=== PATIENT | male | born 1980 | race Caucasian/White ===

== ENCOUNTER 2019-01-23 16:49 | Outpatient (CLI) | payer SELFPAY ==
[2019-01-23 21:21] LABS: Kit/Specimen SENT
== END 2019-01-23 17:09 ==
DX: Z02.89 Encounter for other administrative examinations (principal)

== ENCOUNTER 2020-10-04 07:30 | Emergency (ER) | payer MEDICAID, SELFPAY ==
[2020-10-04 07:54] VITALS: BP 120/89; PULSE 60; TEMP 36.8; O2SAT 96
--- NOTE | 2020-10-04 08:00 | DI.RAD_ITS ---
Exam(s) XR HAND RT COMPLETE EXAM: XR HAND RT COMPLETE CLINICAL HISTORY: Handswelling. TECHNIQUE: 2D digital imaging was performed. COMPARISON: CR XR HAND LT COMPLETE from 10/04/2020 FINDINGS: There is a single screw across what is probably healed fracture of the base of the 5th meta carpal. There is no evidence of acute fracture in the right hand. No dislocation. No radiopaque soft tissue foreign body. Lucent see consistent with subarticular cyst is seen in the distal ulna. IMPRESSION: DATA REPOSITORY: RADIATION DOSE DELIVERED:
--- NOTE | 2020-10-04 08:00 | DI.RAD_ITS ---
Exam(s) XR HAND LT COMPLETE EXAM: XR HAND LT COMPLETE CLINICAL HISTORY: Hand swelling. TECHNIQUE: 2D digital imaging was performed. COMPARISON: No exams were available for comparison FINDINGS: There is no evidence of acute fracture nor dislocation. No radiopaque foreign body. Benign bone isl and is noted in the distal radius. Small subarticular cyst is seen in the distal ulna. No radiopaqu e foreign body evident. IMPRESSION: DATA REPOSITORY: RADIATION DOSE DELIVERED:
--- NOTE | 2020-10-04 08:06 | W.ED.GENAD ---
Discharge Plan Disposition Patient Disposition: HOME Condition: Stable Discharge Details Clinical Impression: Localized swelling of both hands Primary Care Provider: None,None ED Provider: Maria R Pineda Home Meds and New Rx's Prescriptions: No Action methadone 10 mg/mL Syringe 110 mg PO DAILY RF: 0 Discharge Instructions Instructions: Arthralgia (ED) Additional Instructions: Rest, ice, compression, elevation. Please take Tylenol or Ibuprofen with food every 4-6 hours as needed for pain and swelling. Please wash hands vigorously with soap and water. Keep openings in the skin covered with bandage while working. Follow up with primary care provider in 3-5 days. Return to ED sooner if any worsening redness, swelling, fever, chills inability to move your wrist or concerns. Increase oral fluids. X-rays today are negative for anything acute. No obvious inflammation or inflammatory changes. Please follow-up with primary care provider if this continues to occur. You are placed on PCP establishment list for care management they should be giving you a call to help you set up with primary care provider. Discharge Data Discharge Date/Time-TO BE ENTERED AT DEPARTURE: 10/04/20 09:11 Medical Decision Making 40-year-old male presents to the ER with chief complaint of bilateral swollen achy hands which is ongoing for a while worse over the last couple days. States he usually wakes up with swollen hands with inability to make a fist. 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 He does have full extension and flexion of his bilateral wrists. He denies any myalgias, fever, other joint swelling, chest pain or shortness of breath or any other associated symptoms. He states that the swelling and achiness usually goes away on its own. He does not have a primary care provider. He does take methadone daily. Does have a history of right hand surgery for a broken finger. At this time bilateral hand x-rays ordered to rule out arthritis. Due to patient's complaints it does sound that this is chronic in nature and possible arthritic. At this time there is no evidence of cellulitis. Denies any other systemic symptoms no fever no chills no body aches. Will place patient on care management list to establish PCP. Tylenol given. Differential diagnosis includes but not limited to arthritis, cellulitis, X-rays are negative for anything acute. Discussed results with patient who verbalized understanding. Discussed home care. This text was generated using [employer] dictation system, please disregard any oddities of phrase or misspellings. EXAM: XR HAND LT COMPLETE CLINICAL HISTORY: Hand swelling. TECHNIQUE: 2D digital imaging was performed. COMPARISON: No exams were available for comparison FINDINGS: There is no evidence of acute fracture nor dislocation. No radiopaque foreign body. Benign bone island is noted in the distal radius. Small subarticular cyst is seen in the distal ulna. No radiopaque foreign body evident. HPI General Mode of arrival: ambulatory. Date/Time Provider Initiated Documentation: 10/04/20 08:05. Limitations to Documentation: no limitations. Information obtained by: patient. HPI Narrative: 40-year-old male presents to the ER with chief complaint of bilateral swollen achy hands which is ongoing for a while worse over the last couple days. States he usually wakes up with swollen hands with inability to make a fist. 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 He does have full extension and flexion of his bilateral wrists. He denies any myalgias, fever, other joint swelling, chest pain or shortness of breath or any other associated symptoms. He states that the swelling and achiness usually goes away on its own. He does not have a primary care provider. He does take methadone daily. Does have a history of right hand surgery for a broken finger. Related Data Home Medications Medication Instructions Recorded Confirmed methadone 110 mg PO DAILY 10/04/20 10/04/20 Allergies Allergy/AdvReac Type Severity Reaction Status Date / Time cephalexin [From Keflex] AdvReac Unverified 10/04/20 07:57 General Stated Complaint: Orthopedic RONNI: 5 Review of Systems All systems reviewed & are unremarkable except as noted in HPI and below ENT Ears, Nose, Mouth, and Throat: Denies neck pain Musculoskeletal Musculoskeletal: Reports as per HPI, Denies abnormal gait, Denies back pain, Denies myalgias, Denies deformity, Reports arthralgias, Reports joint swelling, Reports limited range of motion, Denies neck pain, Denies numbness, Denies radiating pain into limb, Reports stiffness and Denies tingling Neurologic Neurologic: Denies abnormal gait, Denies numbness and Denies tingling [facility] Social History Smoking/Tobacco Use Status: Current every day Tobacco Type: cigarettes Smoking risk assessment performed?: Yes Alcohol Intake: never Drug use: Never Substance use type: does not use Do you feel safe at home: Yes Do you feel safe in your relationship?: Yes Exam Narrative Exam Narrative: Constitutional: Alert and oriented x3. Appears stated age. Normal body habitus. Head: Normocephalic, no trauma. Eyes: Pupils PERRLA, Red reflex noted, EOM's intact. Eyelids symmetrical without lesions, discharge, or swelling. ENT: Bilateral TM's WNL, External ear normal to inspection. Chest: RRR, Normal S1, S2, distal pulses intact. Resp: Lungs clear to auscultation bilaterally, no wheezes, rales, or rhonchi. Musculoskeletal: Normal gait, 5/5 strength to all four extremities. Skin: Abrasion noted as diagrammed below. Capillary refill less than 2 sec. no significant swelling noted on exam. No significant erythema noted. Neurologic: Cranial nerves II-XII intact. Alert and oriented x 3. DTR's intact. Hematologic/Lymphatic: No ecchymosis, no lymphadenopathy. Extrem Hand/finger images: 1. Superficial abrasion, no surrounding erythema or induration. 2. Small chronic appearing break in skin no surrounding erythema or induration no drainage. 3. Multiple superficial abrasions noted to the palm and palmar side of the fingers. No surrounding erythema or induration or drainage. Course Vital Signs Vital signs: Vital Signs Temperature 36.8 C 10/04/20 07:54 Pulse 60 10/04/20 07:54 Blood Pressure 120/89 10/04/20 07:54 Pulse Oximetry 96 10/04/20 07:54 Temperature 36.8 C 10/04/20 07:54 Temperature Source Temporal Artery Scan 10/04/20 07:54 Pulse 60 10/04/20 07:54 Respiratory Effort Non-Labored 10/04/20 07:56 Blood Pressure 120/89 10/04/20 07:54 Blood Pressure Position Sitting 10/04/20 07:54 Pulse Oximetry 96 10/04/20 07:54 Oxygen Delivery Method Room Air 10/04/20 07:54 Oxygen Flow Rate 0 10/04/20 07:54 Pain Level 8 10/04/20 07:58
[2020-10-04] MEDS: Acetaminophen 325 MG TAB 650 MG PO (08:11)
--- NOTE | 2020-10-04 18:40 | NUR.NOTE ---
Nursing Note: referral to cm for pcp
== END 2020-10-04 09:11 | disposition home or self-care (01) ==
PROVIDERS: Emergency Provider Registered Nurse Emergency
DX: M79.89 Other specified soft tissue disorders (principal); M79.641 Pain in right hand; M79.642 Pain in left hand
CPT/HCPCS: 99284; 73130; 99283

== ENCOUNTER 2021-02-08 08:36 | Emergency (ER) | payer MEDICAID, SELFPAY ==
[2021-02-08 08:42] VITALS: BP 141/88; PULSE 80; RESP 18; TEMP 36.1; O2SAT 97
--- NOTE | 2021-02-08 08:57 | W.ED.GENAD ---
Discharge Plan Disposition Patient Disposition: HOME Condition: Stable Discharge Details Clinical Impression: Rash Primary Care Provider: None,None ED Provider: Caesar Tracey Home Meds and New Rx's Prescriptions: New hydrocortisone 2.5 % cream 1 applic topical TID PRNQty: 30 RF: 0 Continued methadone 10 mg/mL Syringe 110 mg PO DAILY RF: 0 Discharge Instructions Additional Instructions: Your rash seems consistent with psoriasis and not shingles I placed you on the follow up list to see a primary care provider you can take claritin or zyrtec daily and then 25mg benadryl every 4-6 hours as needed if you feel more ill, have difficulty breathing or severe worsening symptoms return to the emergency department Medical Decision Making 40 yo male with hx of prior substance abuse on methadone and no longer using drugs other than marijuana, comes in with rash for a week. no fevers or pain, that rashes are itchy though. He has had a runny nose otherwise no other symptoms. He has well demarcated erythematous some with silvery white scales on his elbows and nose, no warmth or fluctuance, no pain with palpation, no mucous membrane lesions. His symptoms seem most consistent with psoriasis, will have him f/u with pcp and start him on topical steroids, no findings to suggest infectious etiologies or sjs/ten. His runny nose seems typical for vasomotor rhinitis but will obtain covid swab. No face swelling, eomi and no eye pain so doubt more serious pathology such as orbital cellulitis. Return precautions given Differential Diagnosis Differential Diagnosis: contact dermatitis, psoriasis HPI General Mode of arrival: ambulatory. Date/Time Provider Initiated Documentation: 02/08/21 08:43. Limitations to Documentation: no limitations. Information obtained by: patient. History of Present Illness 40 year old M presents to the emergency department with the chief complaint of rash, described as moderate, Patient started experiencing this week(s) (1) and it has been constant. No relieving factors improve symptom(s), No exacerbating factors reported . Patient notes no other symptoms.. Related Data Home Medications Medication Instructions Recorded Confirmed methadone 110 mg PO DAILY 10/04/20 02/08/21 hydrocortisone 1 applic TOPICAL TID PRN #30 g 02/08/21 Previous Rx's Medication Instructions Recorded hydrocortisone 1 applic TOPICAL TID PRN #30 g 02/08/21 Allergies Allergy/AdvReac Type Severity Reaction Status Date / Time cephalexin [From Keflex] AdvReac Unverified 02/08/21 08:45 General Stated Complaint: RashLesion RONNI: 4 Review of Systems All systems reviewed & are unremarkable except as noted in HPI and below Constitutional Constitutional: Denies chills, Denies fever(s) and Denies weakness Cardiovascular Cardiovascular: Denies chest pain and Denies dyspnea Respiratory Respiratory: Denies cough and Denies dyspnea Gastrointestinal Gastrointestinal: Denies abdominal pain, Denies nausea and Denies vomiting Musculoskeletal Musculoskeletal: Denies joint swelling Neurologic Neurologic: Denies weakness [facility] Social History Smoking/Tobacco Use Status: Current every day Tobacco Type: cigarettes Smoking risk assessment performed?: Yes Alcohol Intake: never Drug use: Daily Substance use type: marijuana Do you feel safe at home: Yes Do you feel safe in your relationship?: Yes Exam Const General: no acute distress Orientation: alert HENMT Head: normal to inspection Ears: external ears normal General nose exam: external nose normal Mouth: moist mucous membranes Eyes General: appearance normal, both eyes and all related structures Neck Neck: normal visual inspection Resp Effort & Inspection: normal respiratory effort and able to speak in complete sentences Cardio Rate: regular rate Skin General skin exam: elasticity normal Neuro General: patient alert and patient oriented x3 Extrem General: normal to inspection Psych Mental Status: mental status grossly normal Course Vital Signs Vital signs: Vital Signs Temperature 36.1 C L 02/08/21 08:42 Pulse 80 02/08/21 08:42 Respiratory Rate 18 02/08/21 08:42 Blood Pressure 141/88 H 02/08/21 08:42 Pulse Oximetry 97 02/08/21 08:42 Temperature 36.1 C L 02/08/21 08:42 Temperature Source Temporal Artery Scan 02/08/21 08:42 Pulse 80 02/08/21 08:42 Respiratory Rate 18 02/08/21 08:42 Respiratory Effort Non-Labored 02/08/21 08:46 Blood Pressure 141/88 H 02/08/21 08:42 Blood Pressure Position Sitting 02/08/21 08:42 Pulse Oximetry 97 02/08/21 08:42 Oxygen Delivery Method Room Air 02/08/21 08:42 Oxygen Flow Rate 0 02/08/21 08:42
--- NOTE | 2021-02-08 09:01 | NUR.NOTE ---
referral to cm for establishing pcp
[2021-02-08] MEDS: diphenhydrAMINE 25 MG CAP PO (09:09)
[2021-02-09 10:26] LABS: COVID-19 RT-PCR UVMMC Result Negative (Negative)
--- NOTE | 2021-02-10 10:30 | NUR.NOTE ---
Addendum entered by Laila Liu 02/10/21 10:36: Accessed patient record for address to send result. Original Note: negative covid result mailed to pt. unable to reach by phone.Nursing Note:
== END 2021-02-08 09:19 | disposition home or self-care (01) ==
PROVIDERS: Emergency Provider Emergency Medicine
DX: R21 Rash and other nonspecific skin eruption (principal); L29.0 Pruritus ani; L40.9 Psoriasis, unspecified; Z20.822 Contact with and (suspected) exposure to COVID-19; Z03.818 Encounter for observation for suspected exposure to other biological agents ruled out
CPT/HCPCS: 99283; U0003

== ENCOUNTER 2021-06-13 18:15 | Outpatient (REF) | payer MEDICAID, SELFPAY ==
[2021-06-15 12:39] LABS: COVID-19 RT-PCR UVMMC Result Negative (Negative)
== END 2021-06-13 18:16 | disposition home or self-care (01) ==
LOC: LBN 18:15
PROVIDERS: Visit Provider Physician Assistant Medical
DX: Z20.822 Contact with and (suspected) exposure to COVID-19 (principal); J06.9 Acute upper respiratory infection, unspecified
CPT/HCPCS: U0003

== ENCOUNTER 2023-11-06 17:04 | Inpatient (IN) | payer MEDICAID, SELFPAY ==
[2023-11-06 17:10] VITALS: BP 106/67; PULSE 76; RESP 20; TEMP 37.7; O2SAT 96
--- NOTE | 2023-11-06 17:29 | ED.GENADUL_ITS ---
Discharge Plan Disposition Patient Disposition: Admit to [facility] Condition: Fair Discharge Details Clinical Impression: Cellulitis of right upper extremity Admit Date/Time: 11/06/23 20:26 Admit Provider: Dirk Chung Attending Provider: Dirk Chung Primary Care Provider: None,None ED Provider: Duarte Sharma [facility] General Mode of arrival: ambulatory . Date/Time Provider Initiated Documentation: 11/06/23 17:29 . Limitations to Documentation: no limitations . Information obtained by: patient and RN notes reviewed . HPI Narrative: Patient presents to ED with increasing right arm pain, swelling, redness. Now having rash to the torso mostly the right side. Has noticed a few lesions on his left hand. Initially developed a rash dorsum of the right wrist. This was maybe 2 weeks ago. Was seen at urgent care few days after this started. Was started on prednisone for possible dermatitis type reaction. Patient took his last dose of prednisone yesterday. Symptoms never improved and just persistently worsened. Now has significant pain and swelling in the right arm. Has not had fever or chills. Denies any difficulty breathing. Denies any chest pain or abdominal pain. Former drug abuse but has been clean for quite some time. Related Data Home Medications ?Medication ?Instructions ?Recorded ?Confirmed methadone 10 mg/mL oral syringe 110 mg PO DAILY 10/04/20 11/06/23 (FOR ORAL USE ONLY) hydrocortisone 2.5 % topical cream 1 applic topical TID PRN #30 grams 02/08/21 11/06/23 Previous Rx's ?Medication ?Instructions ?Recorded hydrocortisone 2.5 % topical cream 1 applic topical TID PRN #30 grams 02/08/21 Allergies Allergy/AdvReac Type Severity Reaction Status Date / Time cephalexin (From Keflex) AdvReac Unverified 02/08/21 08:45 General Stated Complaint: RashLesion RONNI: 3 Review of Systems Narrative: Per HPI Exam Narrative Exam Narrative: Const: WDWN male in NAD. VS per triage. HEENT: NC/AT. Normal facial exam. Neck: Supple. Trachea midline. Lungs: Normal respiratory effort. Lungs are clear. Cor: RRR without murmur. Good radial pulses. Neuro: A+O x 3. Normal speech, mentation, gait. Cranial nerves II - XII grossly intact. No gross motor or sensory deficit. Ext: No C/C. Right upper extremity edema mostly prominent in the proximal forearm. Skin: Severe erythema involving right upper extremity from wrist to axilla. Erythema and pustular like lesions extending mostly on the right side of torso down to the abdomen. Mild erythema and small pustular like lesions on left abdomen. Course Vital Signs Vital signs: Vital Signs Temperature 99.9 F H 11/06/23 17:10 Pulse 76 11/06/23 17:10 Respiratory Rate 20 11/06/23 17:10 Blood Pressure 106/67 11/06/23 17:10 Pulse Oximetry 96 11/06/23 17:10 Temperature 99.9 F H 11/06/23 17:10 Temperature Source Tympanic 11/06/23 17:10 Pulse 76 11/06/23 17:10 Respiratory Rate 20 11/06/23 17:10 Respiratory Effort Normal 11/06/23 17:16 Blood Pressure 106/67 11/06/23 17:10 Blood Pressure Position Sitting 11/06/23 17:10 Pulse Oximetry 96 11/06/23 17:10 Oxygen Delivery Method Room Air 11/06/23 17:10 Oxygen Flow Rate 0 11/06/23 17:10 Medical Decision Making Patient presents to ED with a worsening erythematous rash initially treated with prednisone. The pain and swelling in the right upper extremity with erythema involving the entire arm with small pustular like lesions on the trunk suggest cellulitis likely related to staph or strep despite lack of fever or other systemic symptoms. Doubt deeper infection but does warrant CT of the right upper extremity. IV established and vancomycin started. Laboratory studies sent. Fluids given as well as IV ketorolac. Patient's laboratory studies mostly unremarkable. His white count is slightly elevated at 11.6. Sed rate and C-reactive protein are normal. CMP is normal. Preliminary read of CT of the upper extremity suggest cellulitis without fluid collection or deep infection. There are reactive nodes in the right axillary and right upper chest region. Case discussed with hospitalist. Patient to be admitted for IV antibiotics and monitoring of status. Patient aware of plan and agreeable to same. Lab Data Lab results reviewed: Yes I reviewed the patient's lab results. PFSH All Active Problems (Updated 11/06/23 @ 23:03 by Duarte Sharma MD) Cellulitis of right upper extremity (Acute) Rash (Acute) Localized swelling of both hands (Acute) Medical History Moderate opioid dependence on maintenance therapy Surgical History No significant past surgical history Social History Smoking/Tobacco Use Status: Current every day Tobacco Type: cigarettes Smoking risk assessment performed?: Yes Alcohol Intake: never Drug use: Daily Substance use type: marijuana Do you feel safe at home: Yes Do you feel safe in your relationship?: Yes PAWSS Have you Been Recently Intoxicated or Drunk Within the Last 30 days?: No Have you Ever Experienced Previous Episodes of Alcohol Withdrawal?: No Have you ever Experienced Withdrawal Seizures?: No Have you ever Experienced Delirium Tremens(DT)s?: No Have you ever undergone Alcohol Rehabilitation Treatment (i.e, inpt ot outpatient treatment programs)?: No Have you ever Experienced Blackouts?: No Have you ever Combined Alcohol with other Downers within the last 90 days?: No Have you ever Combined Alcohol with any other Substance of Abuse during the last 90 days?: No Positive Blood Alcohol level on Presentation? [PCS.BAL]: No Evidence of Increased Autonomic Activity (i.e. HR>120, tremor, sweating, a gitation, nausea)?: No Result: 0
[2023-11-06] MEDS: Ketorolac 30 MG/ML VIAL IVP (18:00)
[2023-11-06] MEDS: VANCOMYCIN/WATER (PEG) 1.5 GM/300 ML BAG IVPB (18:00)
[2023-11-06] MEDS: Lactated Ringers 1,000 ML 1000 ML IV (18:00)
[2023-11-06 18:07] LABS: Abs Immature Grans 0.03 10^3/uL (0.0-0.06); Absolute Basophil Count 0.05 10^3/uL (0.0-0.2); Absolute Eosinophil Count 0.68 10^3/uL (0.0-0.7); Absolute Monocyte Count 0.76 10^3/uL (0.1-0.8); Basophils % 0.4 %; Eosinophils % 5.9 %; HCT 40.2 % (40.0-50.0); HGB 13.5 g/dL (13.5-17.5); Immature Grans % 0.3 %; Lymphocytes % 21.5 %; MCH 29.7 pg (27.0-33.0); MCHC 33.6 % (32.0-36.0); MCV 88 fL (80-95); MPV 9.7 fL (8.0-11.0); Monocytes % 6.6 %; Neutrophils % 65.3 %; Platelet Count 250 10^3/uL (130-400); RBC 4.55 10^6/uL (4.36-5.78); RDW 13.4 % (11.8-14.1); RDW-SD 43.5 fL; WBC 11.56 10^3/uL (4.4-10.8)
[2023-11-06 18:10] LABS: Absolute Lymphocyte Count 2.49 10^3/uL (1.2-3.4); Absolute Neutrophil Count 7.55 10^3/uL (1.2-6.7); ESR 4 mm/hr (0-15)
[2023-11-06 18:33] LABS: ALT 27 U/L (16-63); AST 21 U/L (15-37); Alkaline Phosphatase 76 U/L (46-116); Anion Gap 10.8 mmol/L (3-11); BUN 15 mg/dL (7-18); Bilirubin, Total 0.22 mg/dL (0.2-1.0); CO2 27.2 mmol/L (21.0-32.0); CREATININE 0.9 mg/dL (0.70-1.30); Calcium 8.9 mg/dL (8.5-10.1); Chloride 102 mmol/L (98-107); Estimated GFR 108.01 (mL/min/1.73m2); Glucose 112 mg/dL (74-106); Potassium 4.2 mmol/L (3.5-5.1); Sodium 140 mmol/L (136-145); Total Protein 6.8 g/dL (6.4-8.2)
[2023-11-06 18:34] LABS: C-Reactive Protein < 0.50 mg/dL (<or=0.5)
[2023-11-06] MEDS: Omnipaque 350 MG/ML 100 ML BTL IJ (18:50)
[2023-11-06] MEDS: Normal Saline - Diluent 50 ML VIAL IJ (18:52)
--- NOTE | 2023-11-06 19:00 | DI.CT_ITS ---
Exam(s) CT UPPER EXTREMITY RT W EXAM: CT UPPER EXTREMITY RT W CLINICAL HISTORY: cellulitis/swelling. TECHNIQUE: Imaging Protocol: Axial computed tomography images with coronal and sagittal reformatted images were created and reviewed. CONTRAST MATERIAL: Intravenous: Omnipaque 350. Contrast Volume: 100 ML COMPARISON: No exams were available for comparison FINDINGS: Bones: The osseous structures and articular surfaces are intact. Bony alignment is satisfactory. N o cellulitic or osteomyelitic changes are identified. There is no evidence of joint space narrowing or cystic degeneration seen. No lytic or sclerotic lesions are identified. Soft Tissues: There is mild edema seen in the soft tissues of the right upper extremity beginning at the level of the mid humerus and extending distally to the proximal forearm. No focal fluid collecti on is seen to suggest an abscess. Mild skin thickening is seen. This may represent a cellulitis. T he visualized lungs are clear. Enhancement: No abnormal enhancement is identified. IMPRESSION: There is edema seen in the soft tissues of the right upper extremity as described which may represent a cellulitis. No abscess is identified. RADIATION DOSE DELIVERED: Total DLP Total DLP DATA REPOSITORY: All CT scans at this facility are submitted to the National Radiology Data Registry (NRDR) Dose Index Registry (DIR) with the [employer] (A[employer]). RADIATION OPTIMIZATION: All CT scans at this facility use at least one of these dose optimization te chniques: automated exposure control; mA and/or kV adjustment per patient size (includes targeted exa ms where dose is matched to clinical indication); or iterative reconstruction.
--- NOTE | 2023-11-06 19:28 | DI.VRAD_ITS ---
PROCEDURE INFORMATION: Exam: CT Right Upper Extremity With Contrast Exam date and time: 11/06/2023 18:49 Age: 43 years old Clinical indication: Swelling; Upper limb; Right TECHNIQUE: Imaging protocol: Computed tomography of the right upper extremity with contrast. Contrast material: OMNIPAQUE 350; Contrast volume: 100 ml; Contrast route: INTRAVENOUS (IV); COMPARISON: CR XR HAND RT COMPLETE 10/04/2020 08:17 FINDINGS: Bones/joints: No acute fracture or subluxation. No focal osseous erosion. Internal fixation 5th metacarpal base is anatomic. Soft tissues: Infiltration of the soft tissues in the right upper extremity, mid upper arm, extending circumferentially across the elbow soft tissues, moderate to severe, mild in the forearm, moderate about the wrist and mild in the hand, without a drainable fluid collection. No intramuscular abscess. Distal triceps enthesophyte. Lymph nodes: Right axillary and antecubital adenopathy likely reactive to edema. IMPRESSION: Right upper extremity edema and/or cellulitis without abscess. Reactive appearing adenopathy Dictated and Authenticated by: Shelia Bhandari MD. Ordering:NORBERT Ramachandran MD
[2023-11-06 19:38] VITALS: BP 108/68; PULSE 82; RESP 20; TEMP 37.6
[2023-11-06] MEDS: ACETAMINOPHEN 1,000 MG/100 ML BTL 400 MG IVPB (19:43)
--- NOTE | 2023-11-06 19:51 | HPE_ITS ---
Date of service: 11/06/23 Time of Service: 19:51 Assessment and Plan Assessment and plan (1) Cellulitis of right upper extremity: Start date: 11/06/23 Status: Acute Assessment and plan: This is a 43-year-old gentleman with presentation of right upper extremity rash which is persistent and now appears to be cellulitic by CT scan without abscessing. He is not febrile but he does have a slight elevation of his WBC with normal sed rate and CRP. He was on vancomycin which will be continued with close follow-up of blood cultures and response. He has completed a course of prednisone with is not effective. Patient is a full code. (2) Moderate opioid dependence on maintenance therapy: Assessment and plan: Patient is on no medical therapy other than methadone and he did have a positive urine drug screen for cocaine and THC as well as his methadone. will be avoided due to supple stable patient having 1 dose of Toradol which will be used only if needed the patient on DVT prophylaxis. He he had a problem with polysubstance abuse persisting. Long-term he should follow-up with his outpatient clinic. 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 He was placed on prednisone and is being seen in the outpatient clinic and has had little effect on his rash. Now he has redness over his right trunk which is not as pruritic and not vesicular. He does have some slight vesicles over his right arm which are weeping. He was seen in the ED and evaluation with CT and lab work concerning for advancing cellulitis. This may be now a gram-positive cocci type infection with strep or staph coccus but still seems to have the appearance of a severe contact dermatitis with the patient said it was slightly worsened by sun exposure. He denies any fever or chills. The rash is uncomfortable and he is uncomfortable with his right upper chest wall. He is having no other chest pain and no other rashes. He is a full code. Review of Systems Narrative: 13 point review of systems otherwise unrevealing or stable PFSH All Active Problems Cellulitis of right upper extremity (Acute) Rash (Acute) Localized swelling of both hands (Acute) Medical History Moderate opioid dependence on maintenance therapy Surgical History No significant past surgical history Social History Smoking/Tobacco Use Status: Current every day Tobacco Type: cigarettes Smoking risk assessment performed?: Yes Alcohol Intake: never Drug use: Daily Substance use type: marijuana Housing: apartment Do you feel safe at home: Yes Do you feel safe in your relationship?: Yes Meds Allergies and Home Medications Allergies Allergy/AdvReac Type Severity Reaction Status Date / Time cephalexin (From Keflex) AdvReac Unverified 02/08/21 08:45 Home Medications ?Medication ?Instructions ?Recorded ?Confirmed ?Type methadone 10 mg/mL oral syringe 110 mg PO DAILY 10/04/20 11/06/23 History (FOR ORAL USE ONLY) hydrocortisone 2.5 % topical cream 1 applic topical TID PRN #30 grams 02/08/21 11/06/23 Rx Exam Narrative Exam Narrative: General: Patient is appropriate for age, alert and oriented x 3 and in no acute distress. He is thinly built. HEENT: Normocephalic, pupils equal and react light symmetrically, extraocular movement intact and sclera anicteric. Oropharynx with moist Koza and fair dentition. Neck: Supple without JVD. Back: Normal posture without CVA tenderness. Lungs: Clear to auscultation percussion with no focalizing rales or rhonchi. Vesicular sounds with good aeration diffusely. Heart: Regular rate and rhythm with no murmurs or gallops appreciated. Abdomen: Scaphoid contour, soft and nontender to palpation no palpable hepatosplenomegaly. Bowel sounds positive all quadrants. Genitalia/rectal: Exam deferred. Extremities: Without clubbing, stenosis or pitting edema. Peripheral pulses intact. Skin: Vesicular, red and swollen area over the entire right arm from the wrist to the upper arm without fluctuance and some slight clear fluid weeping. Abrasions without drainage over the dorsum of the right wrist. Erythematous, indurated area over the right upper chest. Lymph: Palpable swollen lymph nodes right axilla. Neuro: Cranial nerves II through XII grossly intact with no focal motor deficits and no tremor. Psych: Normal affect and mood. No abnormal thought processes. Remote and recent memory intact. Results Imaging Imaging Studies: Exam: CT Right Upper Extremity With Contrast Exam date and time: 11/06/2023 18:49 Age: 43 years old Clinical indication: Swelling; Upper limb; Right COMPARISON: CR XR HAND RT COMPLETE 10/04/2020 08:17 FINDINGS: Bones/joints: No acute fracture or subluxation. No focal osseous erosion. Internal fixation 5th metacarpal base is anatomic. Soft tissues: Infiltration of the soft tissues in the right upper extremity, mid upper arm, extending circumferentially across the elbow soft tissues, moderate to severe, mild in the forearm, moderate about the wrist and mild in the hand, without a drainable fluid collection. No intramuscular abscess. Distal triceps enthesophyte. Lymph nodes: Right axillary and antecubital adenopathy likely reactive to edema. IMPRESSION: Right upper extremity edema and/or cellulitis without abscess. Reactive appearing adenopathy Labs 11/06/23 18:00 11/06/23 18:00 Labs: Laboratory Results - last 24 hr 11/06/23 18:00 WBC 11.56 H RBC 4.55 Hgb 13.5 Hct 40.2 MCV 88 MCH 29.7 MCHC 33.6 RDW 13.4 Plt Count 250 MPV 9.7 Immature Gran % 0.3 Neutrophils % 65.3 Lymphocytes % 21.5 Monocytes % 6.6 Eosinophils % 5.9 Basophils % 0.4 Nucleated RBC % 0.0 Absolute Neutrophils 7.55 H Absolute Lymphocytes 2.49 Absolute Monocytes 0.76 Absolute Eosinophils 0.68 Absolute Basophils 0.05 ESR 4 Sodium 140 Potassium 4.2 Chloride 102 Carbon Dioxide 27.2 Anion Gap 10.8 BUN 15 Creatinine 0.9 Est GFR (CKD-EPI 2020) 108.01 Glucose 112 H Calcium 8.9 Total Bilirubin 0.22 AST 21 ALT 27 Alkaline Phosphatase 76 C-Reactive Protein < 0.50 Total Protein 6.8 Albumin 4.0 Last Vital Signs Temp 37.6 C H 11/06/23 19:38 Pulse 82 11/06/23 19:38 Resp 20 11/06/23 19:38 BP 108/68 11/06/23 19:38 Pulse Ox 96 11/06/23 17:10 PAWSS Have you Been Recently Intoxicated or Drunk Within the Last 30 days?: No Have you Ever Experienced Previous Episodes of Alcohol Withdrawal?: No Have you ever Experienced Withdrawal Seizures?: No Have you ever Experienced Delirium Tremens(DT)s?: No Have you ever undergone Alcohol Rehabilitation Treatment (i.e, inpt ot outpatient treatment programs)?: No Have you ever Experienced Blackouts?: No Have you ever Combined Alcohol with other Downers within the last 90 days?: No Have you ever Combined Alcohol with any other Substance of Abuse during the last 90 days?: No Positive Blood Alcohol level on Presentation? [PCS.BAL]: No Evidence of Increased Autonomic Activity (i.e. HR>120, tremor, sweating, agitation, nausea)?: No Result: 0 Time Spent Time spent with Patient: 55-74 minutes Time was spent: preparing to see the patient(eg.review tests), obtaining and/or reviewing separately otained hiistory, ordering medications,tests, procedures, indepentently interpreting results and counseling the patient
[2023-11-06 21:14] LABS: Bilirubin Negative (Negative); Blood Negative (Negative); Clarity Clear (Clear); Glucose Negative (Negative); Ketones Negative (Negative); Leukocyte Esterase Negative (Negative); Nitrite Negative (Negative); Specific Gravity 1.015 (1.005-1.025); Urobilinogen 0.2 mg/dL (Up to 0.2)
[2023-11-06 21:19] VITALS: BP 104/74; PULSE 55; RESP 12; TEMP 36.5; O2SAT 96
[2023-11-06] MEDS: Enoxaparin 40 MG/0.4 ML SYR SC (21:25)
[2023-11-06] MEDS: Normal Saline Flush 10 ML SYR IVP (21:25)
[2023-11-06 21:27] LABS: *AMPHETAMINES SCREEN URINE Negative (Negative); *BARBITURATES SCREEN URINE Negative (Negative); *BENZODIAZEPINES SCREEN URINE Negative (Negative); Cannabinoids THC Positive (Negative); Cocaine Screen,Urine Positive (Negative); METHADONE URINE SCREEN Positive (Negative); OPIATES URINE SCREEN Negative (Negative)
[2023-11-06 21:28] LABS: Tricyclic Antidepressants Negative (Negative)
[2023-11-07] MEDS: Acetaminophen 325 MG TAB PO ×3 (00:41→19:50)
[2023-11-07 03:33] VITALS: BP 106/74; PULSE 45; RESP 16; TEMP 36.2; O2SAT 97
[2023-11-07] MEDS: VANCOMYCIN 1,250 MG in Normal Saline 250 ML 166.667 MG IVPB (06:33)
[2023-11-07] MEDS: Water,Injection,Sterile 10 ML VIAL (06:35)
[2023-11-07 06:57] LABS: HCT 41.6 % (40.0-50.0); HGB 13.9 g/dL (13.5-17.5); MCH 29.6 pg (27.0-33.0); MCHC 33.4 % (32.0-36.0); MCV 89 fL (80-95); MPV 10.4 fL (8.0-11.0); Platelet Count 220 10^3/uL (130-400); RDW 13.7 % (11.8-14.1); RDW-SD 44.4 fL; WBC 7.42 10^3/uL (4.4-10.8)
[2023-11-07 07:19] LABS: ALT 20 U/L (16-63); AST 14 U/L (15-37); Albumin 3.1 g/dL (3.4-5.0); Alkaline Phosphatase 75 U/L (46-116); Anion Gap 4.6 mmol/L (3-11); BUN 12 mg/dL (7-18); Bilirubin, Total 0.43 mg/dL (0.2-1.0); CO2 31.4 mmol/L (21.0-32.0); CREATININE 0.8 mg/dL (0.70-1.30); Calcium 8.4 mg/dL (8.5-10.1); Chloride 104 mmol/L (98-107); Estimated GFR 111.92 (mL/min/1.73m2); Glucose 97 mg/dL (74-106); Sodium 140 mmol/L (136-145); Total Protein 5.9 g/dL (6.4-8.2)
[2023-11-07 08:15] VITALS: BP 114/84; PULSE 58; RESP 16; TEMP 36.2; O2SAT 98
[2023-11-07] MEDS: Methadone Liquid 10 MG/ML 100 MG PO (08:25)
[2023-11-07] MEDS: Normal Saline Flush 10 ML SYR IVP ×2 (08:26→19:48)
--- NOTE | 2023-11-07 09:54 | INITIAL_ITS ---
Date of service: 11/07/23 Time of Service: 09:54 Care Management Initial Assmt Initial Assessment Reason for Hospitalization: cellulitis Functional Status/Living Situation Patient Presentation: Balta was lying in bed when CM met with him. He was polite and agreeable to conversation. Balta was admitted with cellulitis of his right arm and chest and is having an fair amount of pain. He is currently on methadone maintenance and has other substance use issues making pain control a little more challenging. Balta informed CM that he lives in community housing with 5 other people. 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 Balta does not have a PCP so will be scheduled with a follow up appointment with the T-doc scheduled on the day of his admission. CM explained the new physician referral process to him. Town of Residence: [place], [place] 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) Instrumental Activities of Daily Living (ADLs): Independent Medications Medication Management: No Issues/Barriers identified Physical Functioning/Mobility Assistive Device: none Advance Directives Advance Directives: Do you have an Advance Directive: N 07/15/15 21:45 AD On File at [facility]: N 07/15/15 21:45 Date Asked 11/06/23 11/06/23 17:36 AD Date Reviewed COLST On File at [facility] COLST Date Scanned Code Status Resuscitation Status Full Code Insurance Coverage/Financial Issues Insurance: Medicaid Care Team Visit Care Team Role Provider Type None None Primary Care Provider NON-[facility] STAFF PHYSICIAN Duarte Sharma MD Emergency Provider [facility] STAFF PHYSICIAN Dirk Chung Admit Provider NON-[facility] STAFF PHYSICIAN Attending Provider Discharge Potential Discharge Needs: PCP F/U Appt (needs T-doc appointment) Anticipated Barriers to Discharge: None Identified Patient/Family Education Needs: Review discharge instructions, discuss Ask Me Three Transportation: Private vehicle (Balta has his car at [facility]) Plan: Anticipate Balta will be discharged home with no new services. He will follow up with his T-doc appointment and plan of care. He will drive himself home. CM will follow and continue to support discharge needs. PFSH All Active Problems Cellulitis of right upper extremity (Acute) Rash (Acute) Localized swelling of both hands (Acute) Medical History Moderate opioid dependence on maintenance therapy Surgical History No significant past surgical history Social History Smoking/Tobacco Use Status: Current every day Tobacco Type: cigarettes Smoking risk assessment performed?: Yes Alcohol Intake: never Drug use: Daily Substance use type: marijuana Housing: apartment Do you feel safe at home: Yes Do you feel safe in your relationship?: Yes SDOH(Care Management) Screening Will the Patient Participate in the Screening?: Yes Do you worry about having a steady place to live?: no In the past 12 months, have you had to go without electric, gas, oil or water in your home?: no Have you or anyone in your house had to go without enough food to eat?: no Has lack of transportation kept you from medical appointments or from doing things needed for daily living?: no Has anyone in your support network made you feel unsafe for any reason?: no
[2023-11-07 11:31] VITALS: BP 117/79; PULSE 45; RESP 15; TEMP 36.7; O2SAT 96
[2023-11-07] MEDS: Nicotine 21 MG/24 HR PATCH TD (11:44)
--- NOTE | 2023-11-07 15:23 | W.PM.PROGNOT ---
Date of Service Date of service: 11/07/23 Time of Service: 15:23 Assessment and Plan Assessment and plan (1) Cellulitis of right upper extremity: Status: Acute Assessment and plan: CT scan without evidence of abscess responding to IV vancomycin continue with pharmacy dosing. elevate blood cultures pending/ (2) Moderate opioid dependence on maintenance therapy: Assessment and plan: continue methadone discussed with Dr Aquino Subjective Subjective Patient reports: no new complaints, feels better, tolerating liquids well, tolerating a regular diet, voiding w/o difficulty and afebrile; denies shortness of breath Objective Last Vital Signs Temp 36.7 C 11/07/23 11:31 Pulse 45 L 11/07/23 11:31 Resp 15 11/07/23 11:31 BP 117/79 11/07/23 11:31 Pulse Ox 96 11/07/23 11:31 Laboratory Results - last 24 hr 11/06/23 11/06/23 11/07/23 18:00 21:00 06:00 WBC 11.56 H 7.42 RBC 4.55 4.70 Hgb 13.5 13.9 Hct 40.2 41.6 MCV 88 89 MCH 29.7 29.6 MCHC 33.6 33.4 RDW 13.4 13.7 Plt Count 250 220 MPV 9.7 10.4 Immature Gran % 0.3 Neutrophils % 65.3 Lymphocytes % 21.5 Monocytes % 6.6 Eosinophils % 5.9 Basophils % 0.4 Nucleated RBC % 0.0 Absolute Neutrophils 7.55 H Absolute Lymphocytes 2.49 Absolute Monocytes 0.76 Absolute Eosinophils 0.68 Absolute Basophils 0.05 ESR 4 Sodium 140 140 Potassium 4.2 4.0 Chloride 102 104 Carbon Dioxide 27.2 31.4 Anion Gap 10.8 4.6 BUN 15 12 Creatinine 0.9 0.8 Est GFR (CKD-EPI 2020) 108.01 111.92 Glucose 112 H 97 Calcium 8.9 8.4 L Magnesium 2.0 Total Bilirubin 0.22 0.43 AST 21 14 L ALT 27 20 Alkaline Phosphatase 76 75 C-Reactive Protein < 0.50 Total Protein 6.8 5.9 L Albumin 4.0 3.1 L Urine Color Yellow Urine Clarity Clear Urine pH 6.0 Ur Specific Tiline 1.015 Urine Protein Negative Urine Ketones Negative Urine Blood Negative Urine Nitrite Negative Urine Bilirubin Negative Urine Urobilinogen 0.2 Ur Leukocyte Esterase Negative Urine Glucose Negative Urine Opiates Screen Negative Urine Methadone Screen Positive A Ur Barbiturates Screen Negative Ur Tricyclics Screen Negative Ur Amphetamines Screen Negative U Benzodiazepines Scrn Negative Urine Cocaine Screen Positive A Ur THC Screen Positive A PAWSS Have you Been Recently Intoxicated or Drunk Within the Last 30 days?: No Have you Ever Experienced Previous Episodes of Alcohol Withdrawal?: No Have you ever Experienced Withdrawal Seizures?: No Have you ever Experienced Delirium Tremens(DT)s?: No Have you ever undergone Alcohol Rehabilitation Treatment (i.e, inpt ot outpatient treatment programs)?: No Have you ever Experienced Blackouts?: No Have you ever Combined Alcohol with other Downers within the last 90 days?: Yes Have you ever Combined Alcohol with any other Substance of Abuse during the last 90 days?: No Positive Blood Alcohol level on Presentation? [PCS.BAL]: No Evidence of Increased Autonomic Activity (i.e. HR>120, tremor, sweating, agitation, nausea)?: No Result: 0 Time Spent with Patient Time Spent with Patient: 35-49 minutes Time was spent: preparing to see the patient(eg.review tests), obtaining and/or reviewing separately otained hiistory, ordering medications,tests, procedures, indepentently interpreting results and counseling the patient
[2023-11-07 15:30] VITALS: BP 122/84; PULSE 52; RESP 12; TEMP 36.8; O2SAT 96
[2023-11-07] MEDS: VANCOMYCIN 1,250 MG in Normal Saline 250 ML 166 MG IVPB (18:02)
[2023-11-07 19:42] VITALS: BP 111/78; PULSE 49; RESP 16; TEMP 36.9; O2SAT 94
[2023-11-07] MEDS: Enoxaparin 40 MG/0.4 ML SYR SC (21:59)
[2023-11-07 23:07] VITALS: BP 97/66; PULSE 50; RESP 16; TEMP 37.5; O2SAT 95
[2023-11-07] MEDS: Ketorolac 30 MG/ML VIAL IVP (23:14)
[2023-11-07] MEDS: diphenhydrAMINE 25 MG CAP PO (23:15)
[2023-11-08 03:10] VITALS: BP 126/80; PULSE 52; RESP 16; TEMP 36.7; O2SAT 97
[2023-11-08] MEDS: VANCOMYCIN 1,250 MG in Normal Saline 250 ML 166.7 MG IVPB (06:43)
[2023-11-08 07:22] VITALS: BP 118/87; PULSE 48; RESP 15; TEMP 36.5; O2SAT 98
[2023-11-08] MEDS: Nicotine 21 MG/24 HR PATCH TD (08:04)
[2023-11-08] MEDS: Normal Saline Flush 10 ML SYR IVP (08:05)
[2023-11-08] MEDS: Methadone Liquid 10 MG/ML 100 MG PO (09:38)
[2023-11-08 11:23] VITALS: BP 117/79; PULSE 47; RESP 17; TEMP 36.1; O2SAT 94
[2023-11-08 12:45] LABS: HCT 40.2 % (40.0-50.0); HGB 13.6 g/dL (13.5-17.5); MCH 29.4 pg (27.0-33.0); MCHC 33.8 % (32.0-36.0); MCV 87 fL (80-95); MPV 9.7 fL (8.0-11.0); Platelet Count 212 10^3/uL (130-400); RBC 4.62 10^6/uL (4.36-5.78); RDW 13.4 % (11.8-14.1); RDW-SD 42.2 fL; WBC 8.26 10^3/uL (4.4-10.8)
[2023-11-08 16:13] VITALS: BP 109/81; PULSE 57; RESP 17; TEMP 36.1; O2SAT 96
[2023-11-08] MEDS: Acetaminophen 325 MG TAB PO (17:26)
[2023-11-08] MEDS: VANCOMYCIN 1,250 MG in Normal Saline 250 ML 167 MG IVPB (17:27)
[2023-11-08] MEDS: Enoxaparin 40 MG/0.4 ML SYR SC (22:24)
[2023-11-09] MEDS: Normal Saline Flush 10 ML SYR IVP (06:41)
[2023-11-09] MEDS: VANCOMYCIN 1,250 MG in Normal Saline 250 ML 167 MG IVPB (06:41)
[2023-11-09] MEDS: Water,Injection,Sterile 10 ML VIAL (07:03)
[2023-11-09 07:33] VITALS: BP 126/86; PULSE 56; RESP 16; TEMP 36.6; O2SAT 97
[2023-11-09] MEDS: Sulfameth/Trimeth DS TAB 1 TAB PO ×2 (08:04→10:19)
[2023-11-09] MEDS: Nicotine 21 MG/24 HR PATCH TD (08:05)
[2023-11-09] MEDS: Methadone Liquid 10 MG/ML 100 MG PO (08:51)
--- NOTE | 2023-11-09 09:34 | DSE_ITS ---
Date of service: 11/09/23 Time of Service: 09:34 DS: Diagnosis Discharge Diagnosis (1) Cellulitis of right upper extremity: Status: Acute (2) Moderate opioid dependence on maintenance therapy: Discharge Plan Disposition Patient Disposition: Home Condition: Improving Discharge Details Reason For Visit: R upper extremity cellulitis involving trunk Admit Date/Time: 11/06/23 20:26 Admit Provider: Dirk Chung Attending Provider: Dirk Chung Primary Care Provider: None,None Hospital Course Hospital Course: This is a 43-year-old male patient past medical history significant for opioid abuse on methadone through the [facility] clinic presents to the emergency department for complaints of right upper extremity swelling redness pain and drainage that has been worsening over the past several weeks. He was seen outpatient in urgent care and diagnosed with contact dermatitis he was started on steroids. He reports that symptoms worsened so he eventually presented here. He was started on vancomycin and admitted to the hospitalist services. His symptoms initially were slow to improve but finally showing marked improvement able to be stepdown to oral antibiotics. He has been eating and drinking bowels and bladder functioning he has been afebrile labs unremarkable. He is being discharged to home on Bactrim DS 2 tabs twice daily for 7 more days to complete his course. He has been given skin care instructions and monitoring parameters. He is discharged to home with no new services. Last dose letter for methadone to present to [facility] has been provided discussed with DR Miles Lobato and New Rx's Prescriptions: New sulfamethoxazole-trimethoprim 800-160 mg Tablet 2 tab PO BID Qty: 28 0RF Continued methadone 10 mg/mL Syringe 100 mg PO DAILY Patient Comments: dose verified avila/CHELLE 11/07/23 Rx Instructions: 100 mg PO daily Discontinued hydrocortisone 2.5 % cream 1 applic topical TID PRNQty: 30 0RF Discharge Instructions Instructions: Cellulitis (Skin Infection), Adult ED Additional Instructions: Keep your arm elevated above the level of your heart is much as possible throughout the day Keep your skin clean and dry washing twice daily with warm soapy water rinse completely pat dry. You can apply thin layer of an unscented moisturizer cream such as Eucerin. Monitor area closely for increasing erythema drainage or worsening symptoms, fever and report immediately Referrals: None,None [Primary Care Provider] - (Follow-up with primary care provider as needed, establish with one for health maintenance and monitoring) Activity:: Activity as Tolerated Equipment/Supplies:: No Equipment Needed Diet:: As Tolerated Discharge Orders Discharge Orders: Discharge Order (Routine); Ordered 11/09/23 Ordered By: Lakisha Dumont DS: Summary Time Spent with Patient providing and/or coordinating discharge services: Greater than 30 minutes Status at Discharge Functional status at discharge: independent ambulation Overall status at discharge: patient is progressing back to baseline Mental Status: mental status grossly normal Speech and Movement: speech and movement normal Mood: congruent mood Affect: normal affect Quality:SDOH Health Related Social Needs: No Data to Display Exam Const General: cooperative, comfortable and no acute distress Nutritional Appearance: average body habitus Orientation: alert, awake and oriented x3 HENMT Head: normal to inspection, normocephalic and atraumatic Face and sinus: normal facial exam Mouth: oral mucosae normal Eyes General: appearance normal, both eyes and all related structures Neck Neck: normal visual inspection Resp Effort & Inspection: normal respiratory effort Auscultation: clear to auscultation bilaterally Cardio Rate: regular rate Rhythm: regular rhythm Skin General skin exam: dry skin and erythema (markedly improved) Neuro General: patient alert, patient awake and patient oriented x3 Cognition: normal cognition Motor: muscle tone normal throughout and strength 5/5 throughout Extrem General: full ROM Right upper extremity: full ROM and edema (improving) Left upper extremity: normal to inspection Right lower extremity: normal to inspection Left lower extremity: normal to inspection Psych Appearance: grossly normal Mental Status: mental status grossly normal Speech and Movement: speech and movement normal Mood: congruent mood Affect: normal affect Attitude: cooperative Thought Process: normal Thought Content: normal Insight: insight good Judgment: judgment good DS: Data Vitals/I&O Vitals and I&O: Vital Signs Temperature 36.6 C 11/09/23 07:33 Temperature Source Temporal Artery Scan 11/09/23 07:33 Pulse 56 L 11/09/23 07:33 Pulse Rhythm Regular 11/09/23 08:12 Respiratory Rate 16 11/09/23 07:33 Respiratory Effort Normal 11/09/23 08:12 Respiratory Depth Normal 11/09/23 08:12 Respiratory Pattern Normal 11/09/23 08:12 Blood Pressure 126/86 11/09/23 07:33 Blood Pressure Mean 81 11/06/23 19:38 Blood Pressure Position Supine 11/06/23 19:38 Pulse Oximetry 97 11/09/23 07:33 Oxygen Delivery Method Room Air 11/09/23 07:33 Oxygen Flow Rate 0 11/09/23 07:33 Pain Level 0 11/09/23 08:51 Intake & Output 11/08/23 11/08/23 11/09/23 11:59 23:59 11:59 Intake Total 250 / 980 730 / 980 61.233 / 61.233 Balance 250 / 980 730 / 980 61.233 / 61.233 Intake: IV 250 / 500 250 / 500 61.233 / 61.233 Oral 480 / 480 Other: Urine Appearance Clear Data Completed and Pending Labs on day of discharge: Labs from last 24 hours 11/08/23 12:28 WBC 8.26 RBC 4.62 Hgb 13.6 Hct 40.2 MCV 87 MCH 29.4 MCHC 33.8 RDW 13.4 Plt Count 212 MPV 9.7 Preliminary micro results at discharge 11/06/23 19:35 Blood Culture - Preliminary Blood NO GROWTH 48 HOURS 11/06/23 19:23 Blood Culture - Preliminary Blood NO GROWTH 48 HOURS PFSH All Active Problems Cellulitis of right upper extremity (Acute) Rash (Acute) Localized swelling of both hands (Acute) Medical History Moderate opioid dependence on maintenance therapy Surgical History No significant past surgical history Social History Smoking/Tobacco Use Status: Current every day Tobacco Type: cigarettes Smoking risk assessment performed?: Yes Alcohol Intake: never Drug use: Daily Substance use type: marijuana Housing: apartment Do you feel safe at home: Yes Do you feel safe in your relationship?: Yes Time Spent with Patient Time Spent with Patient: 45-69 minutes Time was spent: preparing to see the patient(eg.review tests), obtaining and/or reviewing separately otained hiistory, ordering medications,tests, procedures, indepentently interpreting results and counseling the patient
== END 2023-11-09 10:19 | disposition home or self-care (01) | DRG 603 ==
LOC: ER 17:36 → MS 21:15
PROVIDERS: Admitting Provider Family Medicine; Emergency Provider Emergency Medicine; Visit Provider Family Medicine
DX: L03.113 Cellulitis of right upper limb (principal); F11.20 Opioid dependence, uncomplicated; F17.210 Nicotine dependence, cigarettes, uncomplicated; F12.90 Cannabis use, unspecified, uncomplicated; L25.9 Unspecified contact dermatitis, unspecified cause
CPT/HCPCS: 00123; 36415; 80053; 80307; 85027; 85652; 87040; 96365; 96366; 96367; 96375; 99285; J1650; 73201; 81003; 83735; 85025; 86140; 99222; 99232; 99239; J0131; J1885; J3370; J3372; J3490

== ENCOUNTER 2023-12-08 09:13 | Observation (INO) | payer MEDICAID, SELFPAY ==
[2023-12-08 09:16] VITALS: BP 129/76; PULSE 71; RESP 18; TEMP 35.7; O2SAT 95
[2023-12-08 09:33] VITALS: BP 128/85; PULSE 72; RESP 20; TEMP 36.8; O2SAT 98
[2023-12-08 09:52] LABS: Abs Immature Grans 0.06 10^3/uL (0.0-0.06); Absolute Basophil Count 0.03 10^3/uL (0.0-0.2); Absolute Lymphocyte Count 2.39 10^3/uL (1.2-3.4); Absolute Monocyte Count 0.67 10^3/uL (0.1-0.8); Absolute Neutrophil Count 7.26 10^3/uL (1.2-6.7); Basophils % 0.3 %; Eosinophils % 3.7 %; HCT 42.4 % (40.0-50.0); HGB 14.3 g/dL (13.5-17.5); Immature Grans % 0.6 %; Lymphocytes % 22.1 %; MCHC 33.7 % (32.0-36.0); MCV 89 fL (80-95); MPV 9.7 fL (8.0-11.0); Monocytes % 6.2 %; Neutrophils % 67.1 %; Platelet Count 234 10^3/uL (130-400); RBC 4.77 10^6/uL (4.36-5.78); RDW 13.5 % (11.8-14.1); RDW-SD 44.2 fL; WBC 10.82 10^3/uL (4.4-10.8)
[2023-12-08 09:54] LABS: ESR 6 mm/hr (0-15)
[2023-12-08 10:12] LABS: ALT 15 U/L (16-63); AST 19 U/L (15-37); Albumin 3.8 g/dL (3.4-5.0); Alkaline Phosphatase 113 U/L (46-116); Anion Gap 6.2 mmol/L (3-11); BUN 9 mg/dL (7-18); Bilirubin, Total 0.39 mg/dL (0.2-1.0); C-Reactive Protein 0.71 mg/dL (<or=0.5); CO2 30.8 mmol/L (21.0-32.0); Calcium 9.5 mg/dL (8.5-10.1); Chloride 100 mmol/L (98-107); Estimated GFR 95.18 (mL/min/1.73m2); Glucose 107 mg/dL (74-106); Magnesium 1.8 mg/dL (1.8-2.4); Potassium 4.2 mmol/L (3.5-5.1); Sodium 137 mmol/L (136-145); Total Protein 7.5 g/dL (6.4-8.2)
--- NOTE | 2023-12-08 11:11 | ED.GENADUL_ITS ---
Discharge Plan Disposition Patient Disposition: Admit to [facility] Discharge Details Clinical Impression: Cellulitis of right upper extremity Primary Care Provider: None,None ED Provider: Sharan Ashley Home Meds and New Rx's Prescriptions: No Action methadone 10 mg/mL Syringe 100 mg PO DAILY Patient Comments: dose verified w/CHELLE 11/07/23 Rx Instructions: 100 mg PO daily HPI General Mode of arrival: ambulatory . Date/Time Provider Initiated Documentation: 12/08/23 09:13 . Limitations to Documentation: no limitations . Information obtained by: patient and RN notes reviewed . History of Present Illness 43 year old M presents to the emergency department with the chief complaint of Right arm rash, described as moderate and similar to prior episodes, Patient started experiencing this month(s) (1) and it has been constant. Medication improves symptom(s), No exacerbating factors reported . Patient did receive the following treatments prior to arrival, other (An tibiotics) Related Data Home Medications ?Medication ?Instructions ?Recorded ?Confirmed methadone 10 mg/mL oral syringe 100 mg PO DAILY 10/04/20 12/08/23 (FOR ORAL USE ONLY) Allergies Allergy/AdvReac Type Severity Reaction Status Date / Time cephalexin (From Keflex) AdvReac Other (See Verified 12/08/23 11:26 Comment) General Stated Complaint: Cellulitis RONNI: 3 Review of Systems Constitutional Constitutional: Reports chills and Denies fever(s) Cardiovascular Cardiovascular: Denies chest pain and Denies dyspnea Respiratory Respiratory: Denies cough and Denies dyspnea Gastrointestinal Gastrointestinal: Denies abdominal pain, Denies nausea and Denies vomiting Integumentary/Breasts Skin/Breast: Reports as per HPI Exam Const General: cooperative, no acute distress and not ill appearing Orientation: alert, awake and oriented x3 HENNM Mouth: moist mucous membranes Resp Effort & Inspection: normal respiratory effort, able to speak in complete sentences and no respiratory distress Cardio Rate: regular rate Rhythm: regular rhythm Pulses: normal peripheral pulses Skin General skin exam: erythema (Right upper extremity) and excoriation (Right upper extremity) Neuro General: patient alert, patient awake, patient oriented x3, moves all extremities and no focal motor deficits Course Vital Signs Vital signs: Vital Signs Temperature 35.7 C L 12/08/23 09:16 Pulse 71 12/08/23 09:16 Respiratory Rate 18 12/08/23 09:16 Blood Pressure 129/76 12/08/23 09:16 Pulse Oximetry 95 12/08/23 09:16 Temperature 36.8 C 12/08/23 09:33 Temperature Source Oral 12/08/23 09:33 Pulse 72 12/08/23 09:33 Respiratory Rate 20 12/08/23 09:33 Respiratory Effort Normal, Non-Labored 12/08/23 09:19 Blood Pressure 128/85 12/08/23 09:33 Blood Pressure Position Sitting 12/08/23 09:33 Pulse Oximetry 98 12/08/23 09:33 Oxygen Delivery Method Room Air 12/08/23 09:33 Oxygen Flow Rate 0 12/08/23 09:16 Pain Level 9 12/08/23 09:33 Lab/Test Results Lab/Test Results: 12/08/23 10:00 Blood Blood Culture - Pending 12/08/23 10:00 Blood Blood Culture - Pending Laboratory Tests Range/Units 12/08/23 09:45 WBC (4.4-10.8) 10^3/uL 10.82 H RBC (4.36-5.78) 10^6/uL 4.77 Hgb (13.5-17.5) g/dL 14.3 Hct (40.0-50.0) % 42.4 MCV (80-95) fL 89 MCH (27.0-33.0) pg 30.0 MCHC (32.0-36.0) % 33.7 RDW (11.8-14.1) % 13.5 Plt Count (130-400) 10^3/uL 234 MPV (8.0-11.0) fL 9.7 Immature Gran % % 0.6 Neutrophils % % 67.1 Lymphocytes % % 22.1 Monocytes % % 6.2 Eosinophils % % 3.7 Basophils % % 0.3 Nucleated RBC % (0.0-0.3) % 0.0 Absolute Neutrophils (1.2-6.7) 10^3/uL 7.26 H Absolute Lymphocytes (1.2-3.4) 10^3/uL 2.39 Absolute Monocytes (0.1-0.8) 10^3/uL 0.67 Absolute Eosinophils (0.0-0.7) 10^3/uL 0.40 Absolute Basophils (0.0-0.2) 10^3/uL 0.03 ESR (0-15) mm/hr 6 Sodium (136-145) mmol/L 137 Potassium (3.5-5.1) mmol/L 4.2 Chloride (98-107) mmol/L 100 Carbon Dioxide (21.0-32.0) mmol/L 30.8 Anion Gap (3-11) mmol/L 6.2 BUN (7-18) mg/dL 9 Creatinine (0.70-1.30) mg/dL 1.0 Est GFR (CKD-EPI 2020) (mL/min/1.73m2) 95.18 Glucose (74-106) mg/dL 107 H Calcium (8.5-10.1) mg/dL 9.5 Magnesium (1.8-2.4) mg/dL 1.8 Total Bilirubin (0.2-1.0) mg/dL 0.39 AST (15-37) U/L 19 ALT (16-63) U/L 15 L Alkaline Phosphatase (46-116) U/L 113 C-Reactive Protein (<or=0.5) mg/dL 0.71 H Total Protein (6.4-8.2) g/dL 7.5 Albumin (3.4-5.0) g/dL 3.8 Medical Decision Making Patient presenting to the emergency department for worsening of rash on the right upper extremity. Patient states this rash started over a month ago and thought it was initially due to poison parsnip given some blistering and itching but rash continued to worsen. Approximately 1 month ago he was admitted to the hospital and discharged on Bactrim which he stated he took for the full course and thought it was almost gone but then the rash is slowly returned and worsened. He states is not as bad as when he initially came in but is concerned that it could get to that point. Patient states some occasional chills but denies fever, night sweats, or systemic symptoms. Patient's vital signs are stable, no significant systemic symptoms, patient is nontoxic in appearance. Physical exam shows significant erythematous area consistent with cellulitic a ppearance going from lower third of the forearm up through the mid bicep. Rash does have some areas of excoriation and fissuring. No lymphadenitis noted, no streaking redness, and exam otherwise non contributory. Differential diagnosis to include erysipelas, cellulitis, impetigo, eczema with underlying infection. Will plan on checking patient's labs. Reviewed patient's labs which do show a slight leukocytosis with white count of 10.8 and slight elevation of CRP but otherwise nondiagnostic labs. Did review patient's previous admission that did show CT findings consistent with cellulitis, and admission with IV vancomycin and DC with Bactrim. Am concerned due to outpatient antibiotic failure with previous admission. Had shared decision-making conversation with patient to discuss pros and cons of admission versus outpatient therapy. After full discussion with patient we decided to have patient admitted given antibiotic failure. Will start patient on IV clindamycin after blood cultures are obtained. Hospitalist was contacted and agreed to admission of patient for further IV antibiotics and monitoring of infection Medical Records Medical records reviewed: Yes I reviewed the patient's medical records. Lab Data Lab results reviewed: Yes I reviewed the patient's lab results. Quality:SDOH Health Related Social Needs: No Data to Display PFSH All Active Problems (Updated 12/08/23 @ 13:58 by Chasidy Ventura APRN) Discharge planning issues (Acute) On deep vein thrombosis (DVT) prophylaxis (Acute) Cellulitis of right upper extremity (Acute) Rash (Acute) Localized swelling of both hands (Acute) Medical History Moderate opioid dependence on maintenance therapy Surgical History No significant past surgical history Social History Smoking/Tobacco Use Status: Current every day Tobacco Type: cigarettes Smoking risk assessment performed?: Yes Alcohol Intake: never Drug use: Daily Substance use type: marijuana Housing: apartment Do you feel safe at home: Yes Do you feel safe in your relationship?: Yes
[2023-12-08] MEDS: ACETAMINOPHEN 1,000 MG/100 ML BTL 400 MG IVPB (11:20)
[2023-12-08] MEDS: CLINDAMYCIN 600 MG/50 ML BAG 100 MG IVPB (11:21)
[2023-12-08] MEDS: Ketorolac 15 MG/ML VIAL IVP ×2 (11:25→16:16)
[2023-12-08] MEDS: Normal Saline Flush 10 ML SYR IVP ×3 (11:25→23:43)
--- NOTE | 2023-12-08 13:33 | W.PM.HP.N ---
Date of service: 12/08/23 Time of Service: 13:33 Assessment and Plan Assessment and plan (1) Cellulitis of right upper extremity: Status: Acute Assessment and plan: Continue Clindamycin Blood cultures pending wound culture Mupirocin Scheduled Acetaminophen for pain Ketorolac PRN CBC in AM BMP in AM (2) Rash: Status: Acute Assessment and plan: As above (3) Moderate opioid dependence on maintenance therapy: Assessment and plan: On home dose methadone (4) On deep vein thrombosis (DVT) prophylaxis: Status: Acute Assessment and plan: On Lovenox (5) Nicotine dependence: Status: Acute Assessment and plan: NRT ordered (6) Discharge planning issues: Status: Acute Assessment and plan: Plan to discharge on oral antibiotics when medically indicated Discussed with Dr. Aquino History of Present Illness History of Present Illness Chief Complaint: Right arm rash Narrative: This 43 years old male patient with past medical history of previous right arm cellulitis, on methadone treatment presented today at [facility] with complaints of right arm rash . The patient reported that approximately a month ago was admitted and treated for colitis with vancomycin in hospital and Bactrim on discharge with improvement of the cellulitis until the oral antibiotics was completed, then worsened. Workup in the ED showed a WBC at 10.82, unremarkable chemistry, CRP at 0.71. Blood cultures are pending. No imaging completed this visit, previous imaging completed on 11/06/2023 showed edema in the soft tissue of the right upper extremity without abscess. In the ED the patient was treated with ketorolac for pain and started on IV clindamycin. The hospitalist was consulted and the patient admitted for evaluation and management of right upper extremity rash, cellulitis, bullous impetigo. The patient reported headaches at home , chills at night , irritability, pain to his right upper extrmitiy. The patient denied, dizzyness, cough, change in vision, recent respiratory infection, nausea, vomiting, diarrhea , dysuria. Review of Systems All systems reviewed & are unremarkable except as noted in HPI and below PFSH All Active Problems (Updated 12/08/23 @ 17:13 by Chasidy Ventura APRN) Nicotine dependence (Acute) Discharge planning issues (Acute) On deep vein thrombosis (DVT) prophylaxis (Acute) Cellulitis of right upper extremity (Acute) Rash (Acute) Localized swelling of both hands (Acute) Medical History Moderate opioid dependence on maintenance therapy Surgical History No significant past surgical history Social History Smoking/Tobacco Use Status: Current every day Tobacco Type: cigarettes Smoking risk assessment performed?: Yes Alcohol Intake: never Drug use: Daily Substance use type: marijuana Housing: apartment Do you feel safe at home: Yes Do you feel safe in your relationship?: Yes Meds Allergies and Home Medications Allergies Allergy/AdvReac Type Severity Reaction Status Date / Time cephalexin (From Keflex) AdvReac Other (See Verified 12/08/23 11:26 Comment) Home Medications ?Medication ?Instructions ?Recorded ?Confirmed ?Type methadone 10 mg/mL oral syringe 100 mg PO DAILY 10/04/20 12/08/23 History (FOR ORAL USE ONLY) Exam Narrative Exam Narrative: Neuro:alert and oriented to self, person, place time and situation. No neurological focal deficit, PERRLA Resp: Normal respiratory pattern, speaks in full sentences, unlabored breathing, clear lung bilaterally Cardio: regular rhythm, S1, S2, no murmur, capillary refill<3 sec., bilateral radial and dorsalis pedis pulses are positive, palpable GI: Abdomen is not distended, soft and non tender, bowel sounds are present : Negative Costovertebral angle tenderness, no bladder distension Back/spine/Pelvis: No back tenderness, normal alignment Integumentary: Redness , thickened and broken upper skin layer, w/o bullae to right upper ext from wrist to mid-bicep Extremities: strength 5/5 to bilateral lower and upper extremities Psych: RASS 0, congruent mood and normal affect. Results Labs 12/08/23 09:45 12/08/23 09:45 Labs: Laboratory Results - last 24 hr 12/08/23 09:45 WBC 10.82 H RBC 4.77 Hgb 14.3 Hct 42.4 MCV 89 MCH 30.0 MCHC 33.7 RDW 13.5 Plt Count 234 MPV 9.7 Immature Gran % 0.6 Neutrophils % 67.1 Lymphocytes % 22.1 Monocytes % 6.2 Eosinophils % 3.7 Basophils % 0.3 Nucleated RBC % 0.0 Absolute Neutrophils 7.26 H Absolute Lymphocytes 2.39 Absolute Monocytes 0.67 Absolute Eosinophils 0.40 Absolute Basophils 0.03 ESR 6 Sodium 137 Potassium 4.2 Chloride 100 Carbon Dioxide 30.8 Anion Gap 6.2 BUN 9 Creatinine 1.0 Est GFR (CKD-EPI 2020) 95.18 Glucose 107 H Calcium 9.5 Magnesium 1.8 Total Bilirubin 0.39 AST 19 ALT 15 L Alkaline Phosphatase 113 C-Reactive Protein 0.71 H Total Protein 7.5 Albumin 3.8 Last Vital Signs Temp 36.8 C 12/08/23 09:33 Pulse 72 12/08/23 09:33 Resp 20 12/08/23 09:33 BP 128/85 12/08/23 09:33 Pulse Ox 98 12/08/23 09:33 Time Spent Time spent with Patient: >75 minutes Time was spent: preparing to see the patient(eg.review tests), obtaining and/or reviewing separately otained hiistory, ordering medications,tests, procedures, referring, communicating with other health director of primary care, indepentently interpreting results, counseling the patient and care coordination
--- NOTE | 2023-12-08 14:48 | W.PC.ACHO ---
Registration Status: Primary Language: Preferred Language: ED Information & Data Chief Complaint Cellulitis 12/08/23 11:18 Triage Note cellulitis to left arm, 12/08/23 09:16 believed it was caused by poison parsnip back in October. Treated w/antibiotics. Got a little better but still red and painful. Warm to touch, itchy, chills/sweats. Medical / Surgical History (Last Reviewed 12/08/23 @ 11:13 by Sharan Ashley NP) Moderate opioid dependence on maintenance therapy (Last Reviewed 12/08/23 @ 11:13 by Sharan Ashley NP) No significant past surgical history Most Recent Vital Signs Temperature 36.8 C 12/08/23 09:33 Temperature Source Oral 12/08/23 09:33 Pulse 72 12/08/23 09:33 Respiratory Rate 20 12/08/23 09:33 Respiratory Effort Normal, Non-Labored 12/08/23 09:19 Blood Pressure 128/85 12/08/23 09:33 Blood Pressure Position Sitting 12/08/23 09:33 Pulse Oximetry 98 12/08/23 09:33 Oxygen Delivery Method Room Air 12/08/23 09:33 Oxygen Flow Rate 0 12/08/23 09:16 Pain Level 6 12/08/23 14:39 Allergies cephalexin (From Keflex) Adverse Reaction (Verified 12/08/23 11:26) Other (See Comment) irritable, restless legs, vomiting Precautions Isolation Standard precaution 12/08/23 09:19 Active Medications Generic Name Dose Route Start Last Admin Trade Name Freq PRN Reason Stop Dose Admin Sodium Chloride 0 ml 12/08/23 09:30 12/08/23 11:25 Normal Saline Flush 10 Ml Syr IVP 20 ml PRN PRN Administration IV IV Catheter Type [Left Forearm Diffusics ] IV Catheter Gauge [Left 20 Forearm] Diagnostics 12/08/23 Range/Units 09:45 WBC 10.82 H (4.4-10.8) 10^3/uL RBC 4.77 (4.36-5.78) 10^6/uL Hgb 14.3 (13.5-17.5) g/dL Hct 42.4 (40.0-50.0) % MCV 89 (80-95) fL MCH 30.0 (27.0-33.0) pg MCHC 33.7 (32.0-36.0) % RDW 13.5 (11.8-14.1) % Plt Count 234 (130-400) 10^3/uL MPV 9.7 (8.0-11.0) fL Immature Gran % 0.6 % Neutrophils % 67.1 % Lymphocytes % 22.1 % Monocytes % 6.2 % Eosinophils % 3.7 % Basophils % 0.3 % Nucleated RBC % 0.0 (0.0-0.3) % Absolute Neutrophils 7.26 H (1.2-6.7) 10^3/uL Absolute Lymphocytes 2.39 (1.2-3.4) 10^3/uL Absolute Monocytes 0.67 (0.1-0.8) 10^3/uL Absolute Eosinophils 0.40 (0.0-0.7) 10^3/uL Absolute Basophils 0.03 (0.0-0.2) 10^3/uL ESR 6 (0-15) mm/hr Sodium 137 (136-145) mmol/L Potassium 4.2 (3.5-5.1) mmol/L Chloride 100 (98-107) mmol/L Carbon Dioxide 30.8 (21.0-32.0) mmol/L Anion Gap 6.2 (3-11) mmol/L BUN 9 (7-18) mg/dL Creatinine 1.0 (0.70-1.30) mg/dL Est GFR (CKD-EPI 2020) 95.18 (mL/min/1.73m2) Glucose 107 H (74-106) mg/dL Calcium 9.5 (8.5-10.1) mg/dL Magnesium 1.8 (1.8-2.4) mg/dL Total Bilirubin 0.39 (0.2-1.0) mg/dL AST 19 (15-37) U/L ALT 15 L (16-63) U/L Alkaline Phosphatase 113 (46-116) U/L C-Reactive Protein 0.71 H (<or=0.5) mg/dL Total Protein 7.5 (6.4-8.2) g/dL Albumin 3.8 (3.4-5.0) g/dL 12/08/23 10:00 Blood Culture - Pending Blood 12/08/23 10:00 Blood Culture - Pending Blood Intake and Output - 24 Hour Total 12/08/23 09:13 thru 12/08/23 13:02 Intake Total 150 Balance 150 Weight 86.183 kg Intake: IV 150 Falls Risk Assessment History of Falls No History 12/08/23 09:29 Fall Total Score 0 12/08/23 09:29 Level of Risk Standard/Low Risk 12/08/23 09:29 Problems (Last Reviewed 12/08/23 @ 11:13 by Sharan Ashley NP) Discharge planning issues (Acute) On deep vein thrombosis (DVT) prophylaxis (Acute) Cellulitis of right upper extremity (Acute) Rash (Acute) v v v v v v v v v Sending and/or Receiving Nurses: Please use comment section below to note any information pertinent to the patient hand-off not included above. Information / Comments: S: Pt in the ED today d/t filing outpt ABX therapy for a wild parsnip irritation/cellulitis. He was hospitalized last month for the same thing. 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 A: Skin remains infected and irritated, needing more IV ABX administration. VS in ED: 36.8, 128/85, 20, 72, 98% on RA R: IV ABX and labwork Report received from: Stacey HENDERSON @ [phone]
[2023-12-08 15:18] VITALS: BP 130/90; PULSE 56; RESP 18; TEMP 36.7; O2SAT 98
--- NOTE | 2023-12-08 15:47 | NUR.NOTE ---
Nursing Note: Pt admitted to 215 from ED approx 1500. He had not eaten since breakfast, regular diet order so brought him chips, yakov maria victoria and chicken salad sandwich. Provider in to see pt now to complete pain med and wound orders.
[2023-12-08] MEDS: Enoxaparin 40 MG/0.4 ML SYR SC (16:16)
[2023-12-08] MEDS: Acetaminophen 500 MG TAB 1000 MG PO (17:14)
[2023-12-08] MEDS: CLINDAMYCIN 900 MG/50 ML BAG 50 MG IVPB (17:56)
[2023-12-08] MEDS: Mupirocin 2% 15 GM TUBE TP (19:26)
[2023-12-08 19:34] VITALS: BP 110/78; PULSE 57; RESP 14; TEMP 36.6; O2SAT 93
[2023-12-09] VITALS: BP 122/78; PULSE 52; RESP 16; TEMP 36.8; O2SAT 94
--- NOTE | 2023-12-09 | DI.RAD_ITS ---
Exam(s) XR ELBOW RT COMPLETE EXAM: XR ELBOW RT COMPLETE CLINICAL HISTORY: limitation in mobility. TECHNIQUE: 2D digital imaging was performed. COMPARISON: No exams were available for comparison FINDINGS: 3 views No evidence of fracture or prominent elbow joint effusion. There is no swelling of olecranon bursa. Enthesophyte is noted posteriorly at the triceps insertion site on the posterior olecranon. There are no fractures of the radial head and neck nor abnormality of the capitellum evident. Bone density normal. No osseous lesions. No radiopaque foreign bodies. IMPRESSION: As above. DATA REPOSITORY: RADIATION DOSE DELIVERED:
[2023-12-09] MEDS: Acetaminophen 500 MG TAB 1000 MG PO ×5 (00:01→23:46)
[2023-12-09] MEDS: Melatonin 3 MG TAB 6 MG PO (00:01)
[2023-12-09] MEDS: diphenhydrAMINE 25 MG CAP PO (00:01)
[2023-12-09] MEDS: Ketorolac 15 MG/ML VIAL IVP ×5 (00:05→23:47)
[2023-12-09] MEDS: Normal Saline Flush 10 ML SYR IVP ×6 (00:06→23:47)
[2023-12-09] MEDS: CLINDAMYCIN 900 MG/50 ML BAG 50 MG IVPB ×3 (02:04→17:37)
[2023-12-09 06:35] LABS: Abs Immature Grans 0.03 10^3/uL (0.0-0.06); Absolute Basophil Count 0.02 10^3/uL (0.0-0.2); Absolute Eosinophil Count 0.41 10^3/uL (0.0-0.7); Absolute Lymphocyte Count 2.45 10^3/uL (1.2-3.4); Absolute Monocyte Count 0.52 10^3/uL (0.1-0.8); Absolute Neutrophil Count 3.59 10^3/uL (1.2-6.7); Basophils % 0.3 %; Eosinophils % 5.8 %; HCT 41.9 % (40.0-50.0); Immature Grans % 0.4 %; Lymphocytes % 34.9 %; MCH 29.1 pg (27.0-33.0); MCHC 33.4 % (32.0-36.0); MCV 87 fL (80-95); Monocytes % 7.4 %; Neutrophils % 51.2 %; Platelet Count 219 10^3/uL (130-400); RBC 4.81 10^6/uL (4.36-5.78); RDW 13.4 % (11.8-14.1); RDW-SD 42.8 fL; WBC 7.02 10^3/uL (4.4-10.8)
[2023-12-09 07:23] LABS: Anion Gap 9.2 mmol/L (3-11); BUN 19 mg/dL (7-18); CO2 28.8 mmol/L (21.0-32.0); Calcium 9.4 mg/dL (8.5-10.1); Chloride 103 mmol/L (98-107); Estimated GFR 95.18 (mL/min/1.73m2); Glucose 93 mg/dL (74-106); Potassium 3.9 mmol/L (3.5-5.1); Sodium 141 mmol/L (136-145)
[2023-12-09] MEDS: Nicotine 21 MG/24 HR PATCH TD (07:40)
[2023-12-09] MEDS: Mupirocin 2% 15 GM TUBE TP ×3 (07:41→19:43)
[2023-12-09 07:54] VITALS: BP 129/96; PULSE 63; RESP 18; TEMP 36; O2SAT 98
--- NOTE | 2023-12-09 09:23 | W.PM.PROGNOT ---
Date of Service Date of service: 12/09/23 Time of Service: :24 Assessment and Plan Assessment and plan (1) Cellulitis of right upper extremity: Status: Acute Assessment and plan: Initial mild leukocytosis resolved this AM Will continue Clindamycin Blood cultures still pending wound culture: rare GPC Contiue Mupirocin Pain management -continue scheduled Acetaminophen for pain -Now on scheduled Toradol CBC in AM CRP added to AM labs, initial one was 0.71 Orthopedic consult for decreased mobility to RUE -XR completed- shows enthesophyte- no effusion (2) Rash: Status: Acute Assessment and plan: As above (3) Moderate opioid dependence on maintenance therapy: Assessment and plan: Continue home dose methadone (4) On deep vein thrombosis (DVT) prophylaxis: Status: Acute Assessment and plan: On LMWH (5) Nicotine dependence: Status: Acute Assessment and plan: continue topical nicotine replacement (6) Discharge planning issues: Status: Acute Assessment and plan: Plan to discharge on oral antibiotics when medically indicated Discussed with Dr. Aquino Subjective Subjective Patient reports: feels better, still having pain, tolerating liquids well, tolerating a regular diet and voiding w/o difficulty; denies diarrhea, nausea, vomiting, shortness of breath or fever Exam Narrative Exam Narrative: No acute distress c/o of pain at 10 to right UE Neuro:alert and oriented X . No neurological focal deficit Resp: Normal respiratory pattern, speaks in full sentences, unlabored breathing, clear lung bilaterally Cardio: regular rhythm, S1, S2, no murmur, capillary refill<3 sec., bilateral radial and dorsalis pedis pulses are positive, palpable GI: Abdomen is not distended, soft and non tender, bowel sounds are present Integumentary: Redness , thickened and broken upper skin layer, w/o bullae to right upper ext from wrist to mid-bicep Extremities: Reduced mobility to right UE, slow flexion/extension not complete Psych: RASS 0, congruent mood and normal affect. Objective Last Vital Signs Temp 36.0 C L 12/09/23 07:54 Pulse 63 12/09/23 07:54 Resp 18 12/09/23 07:54 BP 129/96 H 12/09/23 07:54 Pulse Ox 98 12/09/23 07:54 Laboratory Results - last 24 hr 12/08/23 12/09/23 09:45 06:21 WBC 10.82 H 7.02 RBC 4.77 4.81 Hgb 14.3 14.0 Hct 42.4 41.9 MCV 89 87 MCH 30.0 29.1 MCHC 33.7 33.4 RDW 13.5 13.4 Plt Count 234 219 MPV 9.7 10.0 Immature Gran % 0.6 0.4 Neutrophils % 67.1 51.2 Lymphocytes % 22.1 34.9 Monocytes % 6.2 7.4 Eosinophils % 3.7 5.8 Basophils % 0.3 0.3 Nucleated RBC % 0.0 0.0 Absolute Neutrophils 7.26 H 3.59 Absolute Lymphocytes 2.39 2.45 Absolute Monocytes 0.67 0.52 Absolute Eosinophils 0.40 0.41 Absolute Basophils 0.03 0.02 ESR 6 Sodium 137 141 Potassium 4.2 3.9 Chloride 100 103 Carbon Dioxide 30.8 28.8 Anion Gap 6.2 9.2 BUN 9 19 H Creatinine 1.0 1.0 Est GFR (CKD-EPI 2020) 95.18 95.18 Glucose 107 H 93 Calcium 9.5 9.4 Magnesium 1.8 Total Bilirubin 0.39 AST 19 ALT 15 L Alkaline Phosphatase 113 C-Reactive Protein 0.71 H Total Protein 7.5 Albumin 3.8 Time Spent with Patient Time Spent with Patient: >50 minutes Time was spent: preparing to see the patient(eg.review tests), obtaining and/or reviewing separately otained hiistory, ordering medications,tests, procedures, referring, communicating with other health senior care specialist, indepentently interpreting results and counseling the patient
[2023-12-09 09:38] LABS: Lab Add On Test Done
[2023-12-09 09:50] LABS: C-Reactive Protein 0.54 mg/dL (<or=0.5)
[2023-12-09] MEDS: Methadone Liquid 10 MG/ML 100 MG PO (10:02)
--- NOTE | 2023-12-09 10:58 | INITIAL_ITS ---
Date of service: 12/09/23 Time of Service: 10:58 Care Management Initial Assmt Initial Assessment Reason for Hospitalization: cellulitis of right upper extremity Functional Status/Living Situation Patient Presentation: Balta was sitting up in bed when CM met with him. He stated that he is doing well today, and that per provider, he is currently being treated with IV antibiotics. Per report, the provider is waiting for cultures to determine his antibiotic course. Balta stated that he was treated for a similar infection a little more than a month ago, but the rash came back. Balta reported that he is happy with the care he is receiving at [facility]. He stated that he is independent in the community, and will ask a friend/roommate for a ride when he is ready for discharge. He stated that he lives in a communal home, where he rents a room and shares living space with five other people. He reported that he has been living there for about a year, and that he is happy with the arrangement. He stated that his parents live locally, but that he is not dependent on them. CM will continue to follow. 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) Instrumental Activities of Daily Living (ADLs): Independent Medications Medication Management: No Issues/Barriers identified Advance Directives Advance Directives: Do you have an Advance Directive: N 07/15/15 21:45 AD On File at [facility]: N 07/15/15 21:45 Date Asked 12/08/23 12/08/23 09:20 AD Date Reviewed COLST On File at [facility] COLST Date Scanned Code Status Resuscitation Status Full Code Insurance Coverage/Financial Issues Insurance: [facility] Care Team Visit Care Team Role Provider Type None None Primary Care Provider NON-[facility] STAFF PHYSICIAN Sharan Ashley, [place] Emergency Provider NURSE PRACTITIONER Mahin Aquino MD Admit Provider [facility] STAFF PHYSICIAN Attending Provider Discharge Potential Discharge Needs: PCP F/U Appt (vocational rehabilitation consultant provider [facility] f/u) Anticipated Barriers to Discharge: None Identified Patient/Family Education Needs: Review discharge instructions, discuss Ask Me Three Transportation: Private vehicle Plan: Anticipate Balta will return home once medically cleared. He will transport home via private vehicle. He will follow up with the vocational rehabilitation consultant provider (Levi Avendaño [facility]), and his discharge plan of care. CM will continue to follow. PFSH All Active Problems (Updated 12/08/23 @ 17:13 by Chasidy Ventura APRN) Nicotine dependence (Acute) Discharge planning issues (Acute) On deep vein thrombosis (DVT) prophylaxis (Acute) Cellulitis of right upper extremity (Acute) Rash (Acute) Localized swelling of both hands (Acute) Medical History Moderate opioid dependence on maintenance therapy Surgical History No significant past surgical history Social History Smoking/Tobacco Use Status: Current every day Tobacco Type: cigarettes Smoking risk assessment performed?: Yes Alcohol Intake: never Drug use: Daily Substance use type: marijuana Housing: apartment Do you feel safe at home: Yes Do you feel safe in your relationship?: Yes SDOH(Care Management) Screening Will the Patient Participate in the Screening?: Declined to provide Do you worry about having a steady place to live?: no In the past 12 months, have you had to go without electric, gas, oil or water in your home?: no Have you or anyone in your house had to go without enough food to eat?: no Has lack of transportation kept you from medical appointments or from doing things needed for daily living?: no Has anyone in your support network made you feel unsafe for any reason?: no
[2023-12-09 15:16] VITALS: BP 128/90; PULSE 51; RESP 18; TEMP 36.3; O2SAT 95
[2023-12-09] MEDS: Enoxaparin 40 MG/0.4 ML SYR SC (16:01)
--- NOTE | 2023-12-09 17:23 | OCONE_ITS ---
Date of service: 12/09/23 Time of Service: 16:40 History of Present Illness History of Present Illness Chief Complaint: Right elbow pain Narrative: Roger is a 43-year-old male who was admitted to the hospital for a cellulitis of the right upper extremity. He was initially diagnosed with cellulitis at the end of October which required some IV antibiotics and eventually transition to Bactrim. He feels he did well on the Bactrim but once the Bactrim stopped he had return of symptoms. Upon admission he had a very mildly elevated CRP. His greatest concern is pain about the right arm. He was able to move and use the right elbow although he found that it was somewhat stiff. He currently reports some mild pain about the right elbow but feels he still able to move it and use it without notable limitation except for some mild stiffness and mild pain. He denies numbness or tingling. He feels that the cellulitis is getting better. Consults Consult date: 12/09/23 Requesting physician: Chasidy Ventura Consult Reason Right elbow pain and overlying cellulitis. Assessment and Plan Assessment and plan (1) Cellulitis of right upper extremity: Status: Acute Assessment and plan: Roger is a 43-year-old male who has been admitted for right upper extremity cellulitis. There is concern about his elbow motion and pain. Ever, he does not have any clinical findings consistent with septic arthritis. He has very minimal pain with passive and active range of motion except for the endpoints. Some stiffness unfortunately likely related to arthritis or seen on the x-ray. There is no effusion on clinical exam and there is no effusion on the x-ray. He does have some arthritic changes in this possibility has some reactive arthritis or reactive synovitis from the ongoing cellulitis antibiotic treatment. Anti- inflammatory usage could be helpful. I do not see any indication for elbow aspiration at this time continue supportive care but no further intervention is required. Review of Systems All systems reviewed & are unremarkable except as noted in HPI and below PFSH All Active Problems Nicotine dependence (Acute) Discharge planning issues (Acute) On deep vein thrombosis (DVT) prophylaxis (Acute) Cellulitis of right upper extremity (Acute) Rash (Acute) Localized swelling of both hands (Acute) Medical History Moderate opioid dependence on maintenance therapy Surgical History No significant past surgical history Social History Smoking/Tobacco Use Status: Current every day Tobacco Type: cigarettes Smoking risk assessment performed?: Yes Alcohol Intake: never Drug use: Daily Substance use type: marijuana Housing: apartment Do you feel safe at home: Yes Do you feel safe in your relationship?: Yes Exam Narrative Exam Narrative: Sitting up in the hospital bed. No acute distress. Alert and orient x 3. Evaluation of the right upper extremity shows areas are reddened and cracked skin. More hyperemic than truly cellulitic. There is some pain to palpation throughout the forearm. Minimal pain about the elbow. No palpable effusion. No pain at the radiocapitellar joint. No significant pain with active nor passive range of motion. His active range of motion is approximate 20 degrees of extension to about 140 degrees flexion. There is some pain at the endpoints. Results Last Vital Signs Temp 36.3 C L 12/09/23 15:16 Pulse 51 L 12/09/23 15:16 Resp 18 12/09/23 15:16 BP 128/90 12/09/23 15:16 Pulse Ox 95 12/09/23 15:16 Labs 12/09/23 06:21 12/09/23 06:21 Labs: Laboratory Results - last 24 hr 12/09/23 06:21 WBC 7.02 RBC 4.81 Hgb 14.0 Hct 41.9 MCV 87 MCH 29.1 MCHC 33.4 RDW 13.4 Plt Count 219 MPV 10.0 Immature Gran % 0.4 Neutrophils % 51.2 Lymphocytes % 34.9 Monocytes % 7.4 Eosinophils % 5.8 Basophils % 0.3 Nucleated RBC % 0.0 Absolute Neutrophils 3.59 Absolute Lymphocytes 2.45 Absolute Monocytes 0.52 Absolute Eosinophils 0.41 Absolute Basophils 0.02 Sodium 141 Potassium 3.9 Chloride 103 Carbon Dioxide 28.8 Anion Gap 9.2 BUN 19 H Creatinine 1.0 Est GFR (CKD-EPI 2020) 95.18 Glucose 93 Calcium 9.4 C-Reactive Protein 0.54 H Add-On Test Request Done Imaging Imaging Studies: X-ray of the right elbow shows some mild arthritic changes. No effusion.
[2023-12-09 23:39] VITALS: BP 120/88; PULSE 60; RESP 16; TEMP 36.5; O2SAT 94
[2023-12-10] MEDS: diphenhydrAMINE 25 MG CAP PO
[2023-12-10] MEDS: Melatonin 3 MG TAB 9 MG PO
[2023-12-10] MEDS: CLINDAMYCIN 900 MG/50 ML BAG 50 MG IVPB ×2 (02:02→09:37)
[2023-12-10] MEDS: Normal Saline Flush 10 ML SYR IVP ×4 (02:08→12:55)
[2023-12-10] MEDS: Acetaminophen 500 MG TAB 1000 MG PO ×2 (06:23→12:54)
[2023-12-10] MEDS: Ketorolac 15 MG/ML VIAL IVP ×2 (06:25→12:55)
[2023-12-10 07:56] VITALS: BP 132/82; PULSE 58; RESP 17; TEMP 36.2; O2SAT 96
[2023-12-10] MEDS: Methadone Liquid 10 MG/ML 100 MG PO (09:42)
[2023-12-10] MEDS: Lactobacillus Acidophilus CAP 1 CAP PO (09:42)
[2023-12-10] MEDS: Nicotine 21 MG/24 HR PATCH TD (09:42)
[2023-12-10 11:01] LABS: HCT 40.2 % (40.0-50.0); HGB 13.6 g/dL (13.5-17.5); MCH 29.5 pg (27.0-33.0); MCHC 33.8 % (32.0-36.0); MCV 87 fL (80-95); MPV 9.6 fL (8.0-11.0); Platelet Count 215 10^3/uL (130-400); RBC 4.61 10^6/uL (4.36-5.78); RDW 13.2 % (11.8-14.1); RDW-SD 41.9 fL; WBC 7.48 10^3/uL (4.4-10.8)
--- NOTE | 2023-12-10 11:09 | DSE_ITS ---
Date of service: 12/10/23 Time of Service: 11:09 DS: Diagnosis Discharge Diagnosis (1) Cellulitis of right upper extremity: Status: Acute Discharge Plan Disposition Patient Disposition: Home Condition: Improving Discharge Details Reason For Visit: Right arm cellulitis Admit Date/Time: 12/08/23 13:45 Admit Provider: Mahin Aquino Attending Provider: Mahin Aquino Primary Care Provider: None,None Hospital Course Hospital Course: This 43-year-old male patient with a past medical history of previous right arm cellulitis this summer, opioid dependency on methadone treatment presented on 12/08/2023 to the ED at [facility] with complaints of right arm rash. The patient reported being admitted approximately a month ago and treated for cellulitis with vancomycin as an inpatient and Bactrim as an outpatient upon discharge. The patient reported improvement during the antibiotic therapy with worsening rash upon completion. Workup in the ED showed heart failure 6-year-old significant house last night a WBC of 10.82, unremarkable chemistry, CRP was 0.71. In the ED there was no imaging completed this visit. Previous CT imaging completed on 11/06/2023 demonstrated edema in the soft tissues of the right upper extremity without abscess. In the emergency room the patient was treated with ketorolac IV for pain and was started on IV clindamycin. The hospitalist service was consulted and the patient was admitted to the medical surgical floor for evaluation and management of right upper extremity rash, cellulitis versus bullous impetigo. The patient also reported transient areas of rash to other areas of his body without the hyperkeratosis seen on the right upper extremity. On arrival to the floor, the patient reported headaches at home, chills at night, irritability, pain to his right upper extremity. The patient denied dizziness, cough, change in vision recent respiratory infection, nausea, vomiting, diarrhea, or dysuria. The patient continued to be treated with IV clindamycin. Topical mupirocin was added to the regimen as well as scheduled acetaminophen with the escalation of as needed ketorolac to scheduled ketorolac. The patient complained of insomnia and melatonin as well as as needed Benadryl were added to the patient medicine regimen. The patient complained of decreased range of motion and pain to his right elbow joint. An orthopedic consult was initiated with recommendation for x-ray. The orthopedic consult completed by Dr. Bonner d/t concern about his elbow motion and pain with recommendations for anti-inflammatory medicines without recommendation for joint aspiration as findings are most likely related to arthritis seen on the x-ray with possibility of reactive arthritis or reactive synovitis from the ongoing cellulitis with antibiotic treatment. There was no clinical findings consistent with septic arthritis. The blood culture showed no growth. Skin/wound culture showed Staphylococcus aureus. Consideration given to discharging the patient on linezolid but this was contraindicated with the use of methadone. The patient remained afebrile with normal vital signs, WBC is 7.48 and CRP was 0.54. The patient will be discharged home on oral clindamycin, probiotics, mupirocin , a short course of acetaminophen and naproxen; patient informed that he could also take ibuprofen with food instead of naproxen. The patient will need to follow-up with the primary care practitioner within 7 days of discharge. The patient will need to follow-up with dermatology, referral for [facility] outpatient dermatology was initiated. Recommendation given to the patient not to expose his right upper extremity to his work environment until skin fissures are healed. 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 Discussed with Dr. Aquino Home Meds and New Rx's Prescriptions: New acetaminophen 500 mg Tablet 1,000 mg PO Q6H Qty: 30 0RF clindamycin HCl 300 mg capsule 300 mg PO TID Qty: 24 0RF clindamycin HCl 150 mg capsule 150 mg PO TID Qty: 24 0RF Rx Instructions: Take a total of 450 mg 3 times per day ( 300 mg + 150 mg). Take 3 hours apart from probiotics. Bio-K plus 50 billion cell capsule,delayed release(DR/EC) 1 cap PO DAILY Qty: 10 0RF Rx Instructions: Take 3 hours before or after antibiotics naproxen sodium 550 mg tablet 550 mg PO Q12H Qty: 10 0RF Rx Instructions: Take with food mupirocin 2 % ointment 1 applic topical BID Qty: 22 0RF Rx Instructions: To right upper extremity No Action methadone 10 mg/mL Syringe 100 mg PO DAILY Patient Comments: dose verified w/CHELLE 11/07/23 Rx Instructions: 100 mg PO daily Discharge Instructions Referrals: DERMATOLOGY,[facility] [OTHER] - (OPT f/u please. Initially admitted for right upper ext cellulitis in 10/2024 treated with vancomycin IV then oral Bactrim on discharged; improved but skin lesions restarted once Bactrim was completed. Readmitted on 12/07 treated with clindamycin and mupirocin, questioning bullous impetigo, has transient spots on legs ( and a history of them)reassembling dermatitis.) None,None [Primary Care Provider] - (F/u with PCP within 7 days of discharge ) Activity:: Activity as Tolerated Equipment/Supplies:: No Equipment Needed Diet:: As Tolerated Discharge Orders Discharge Orders: Discharge Order (Routine); Ordered 12/10/23 Ordered By: Chasidy Ventura DS: Summary Time Spent with Patient providing and/or coordinating discharge services: Greater than 30 minutes Status at Discharge Functional status at discharge: independent ambulation Overall status at discharge: patient is back to baseline Mental Status: mental status grossly normal Speech and Movement: speech and movement normal Mood: congruent mood Affect: normal affect Quality:SDOH Health Related Social Needs: No Data to Display Referrals and interventions: Pt was here a month ago and answered questions Exam Narrative Exam Narrative: No acute distress Neuro:alert and oriented X . No neurological focal deficit Resp: Unlabored breathing, clear lung bilaterally Cardio: regular rhythm, S1, S2, no murmur, capillary refill<3 sec., bilateral radial pulses are positive GI: Abdomen is not distended, soft and non tender, bowel sounds are present : No CVA tenderness Back/spine/Pelvis: No back tenderness, normal alignment Integumentary:Reduced redness and hyperkeratosis, healing skin fissures to right upper extremity from wrist to mid-bicep Extremities: Improves mobility to right UE Psych: RASS 0, congruent mood and normal affect. Psych Mental Status: mental status grossly normal Speech and Movement: speech and movement normal Mood: congruent mood Affect: normal affect DS: Data Vitals/I&O Vitals and I&O: Vital Signs Temperature 36.2 C L 12/10/23 07:56 Temperature Source Skin 12/10/23 07:56 Pulse 58 L 12/10/23 07:56 Pulse Rhythm Regular 12/09/23 19:56 Respiratory Rate 17 12/10/23 07:56 Respiratory Effort Normal 12/09/23 19:56 Respiratory Depth Normal 12/09/23 19:56 Respiratory Pattern Normal 12/09/23 19:56 Blood Pressure 132/82 12/10/23 07:56 Blood Pressure Position Sitting 12/08/23 09:33 Pulse Oximetry 96 12/10/23 07:56 Oxygen Delivery Method Room Air 12/10/23 07:56 Oxygen Flow Rate 0 12/10/23 07:56 Pain Level 9 12/10/23 07:56 Intake & Output 12/09/23 12/09/23 12/10/23 11:59 23:59 11:59 Intake Total 300 / 1070 770 / 1070 50 / 50 Output Total 150 / 150 Balance 150 / 920 770 / 920 50 / 50 Intake: IV 100 / 150 50 / 150 50 / 50 Oral 200 / 920 720 / 920 Output: Urine 150 / 150 Other: Urine Color Light Becca Urine Appearance Clear Clear Urine Odor Strong Comment voided in toilet x1 unknown void. Stool Size Moderate Stool Characteristics Formed Voiding Methods Urinal Data Completed and Pending Labs on day of discharge: Labs from last 24 hours 12/10/23 10:55 WBC 7.48 RBC 4.61 Hgb 13.6 Hct 40.2 MCV 87 MCH 29.5 MCHC 33.8 RDW 13.2 Plt Count 215 MPV 9.6 Preliminary micro results at discharge 12/08/23 16:40 Wound Culture - Preliminary Arm - Right Staphylococcus Aureus Normal Eryn 12/08/23 10:00 Blood Culture - Preliminary Blood NO GROWTH 24 HOURS 12/08/23 10:00 Blood Culture - Preliminary Blood NO GROWTH 24 HOURS PFSH All Active Problems Nicotine dependence (Acute) Discharge planning issues (Acute) On deep vein thrombosis (DVT) prophylaxis (Acute) Cellulitis of right upper extremity (Acute) Rash (Acute) Localized swelling of both hands (Acute) Medical History Moderate opioid dependence on maintenance therapy Surgical History No significant past surgical history Social History Smoking/Tobacco Use Status: Current every day Tobacco Type: cigarettes Smoking risk assessment performed?: Yes Alcohol Intake: never Drug use: Daily Substance use type: marijuana Housing: apartment Do you feel safe at home: Yes Do you feel safe in your relationship?: Yes Time Spent with Patient Time Spent with Patient: 70-84 minutes4 Time was spent: preparing to see the patient(eg.review tests), obtaining and/or reviewing separately otained hiistory, ordering medications,tests, procedures, referring, communicating with other health disabilities caregiver, indepentently int erpreting results, counseling the patient and care coordination
[2023-12-10] MEDS: Mupirocin 2% 15 GM TUBE TP (11:17)
--- NOTE | 2023-12-10 17:58 | PDOC.CMDIS ---
Date of service: 12/10/23 Time of Service: 17:58 LACE Index Scoring Tool Questions: Length of Stay (in days): 2 Was the patient admitted via the E.D.?: Yes E.D. Visits: 2 Answers: Total Score: 7 Risk of Readmission: Low Risk Care Management Discharge Plan Reason for Hospitalization: right arm cellulitis Discharge Plan: Balta will be discharged home with no new services. He has been prescribed a course of oral antibiotics which are 100% covered by his insurance. He will follow up with a referral to [facility] and will transport via private vehicle with friends. Patient/Family Education Needs: Review of discharge instructions, activity, limitations, follow up plan, discuss Ask Me Three [facility] Health Related Social Needs: No Data to Display Referrals and interventions: Pt was here a month ago and answered questions
== END 2023-12-10 15:02 | disposition home or self-care (01) ==
LOC: ER 13:36 → MS 15:03
PROVIDERS: Nurse Practitioner Acute Care; Admitting Provider Family Medicine; Emergency Provider Nurse Practitioner Family; Visit Provider Family Medicine
DX: L03.113 Cellulitis of right upper limb (principal); R21 Rash and other nonspecific skin eruption; Z79.899 Other long term (current) drug therapy; F17.210 Nicotine dependence, cigarettes, uncomplicated; F11.20 Opioid dependence, uncomplicated; F51.9 Sleep disorder not due to a substance or known physiological condition, unspecified; R68.83 Chills (without fever); M25.521 Pain in right elbow; B95.61 Methicillin susceptible Staphylococcus aureus infection as the cause of diseases classified elsewhere
CPT/HCPCS: 00123; 36415; 80048; 80053; 85027; 85652; 87040; 87077; 96365; 96366; 96368; 96372; 96375; 96376; 99285; J1650; 73080; 83735; 85025; 86140; 87070; 87186; 87205; 99223; 99233; 99239; G0378; J0131; J0737; J1885

== ENCOUNTER 2024-07-09 13:42 | Outpatient (REF) | payer MEDICAID, SELFPAY ==
[2024-07-09 16:32] LABS: HCT 42.4 % (40.0-50.0); HGB 14.3 g/dL (13.5-17.5); MCH 29.1 pg (27.0-33.0); MCHC 33.7 % (32.0-36.0); MCV 86 fL (80-95); MPV 10.4 fL (8.0-11.0); Platelet Count 216 10^3/uL (130-400); RBC 4.92 10^6/uL (4.36-5.78); RDW 12.9 % (11.8-14.1); RDW-SD 40.3 fL; WBC 7.17 10^3/uL (4.4-10.8)
[2024-07-09 16:47] LABS: Hemoglobin A1C 5.6 % (<5.7)
[2024-07-09 16:56] LABS: ALT 26 U/L (16-63); AST 21 U/L (15-37); Albumin 4.1 g/dL (3.4-5.0); Alkaline Phosphatase 110 U/L (46-116); Anion Gap 9.3 mmol/L (3-11); BUN 9 mg/dL (7-18); Bilirubin, Total 0.4 mg/dL (0.2-1.0); CO2 28.7 mmol/L (21.0-32.0); CREATININE 0.8 mg/dL (0.70-1.30); Calcium 9.6 mg/dL (8.5-10.1); Chloride 104 mmol/L (98-107); Cholesterol 264 mg/dL (<200); Estimated GFR 111.22 (mL/min/1.73m2); Glucose 86 mg/dL (74-106); HDL Cholesterol 46 mg/dL (>or=40); Potassium 4.3 mmol/L (3.5-5.1); Sodium 142 mmol/L (136-145); TSH 1.55 uIU/mL (0.36-3.74); Total Protein 7.5 g/dL (6.4-8.2); Triglyceride 410 mg/dL (<150)
[2024-07-09 17:12] LABS: LDL CHOLESTEROL 140 mg/dL (<100)
[2024-07-12 09:52] LABS: PSA, Screening 0.2 ng/mL (<=2.5)
== END 2024-07-09 13:43 | disposition home or self-care (01) ==
LOC: NCHCN 13:42
PROVIDERS: Visit Provider Family Medicine
DX: Z00.00 Encounter for general adult medical examination without abnormal findings (principal); Z80.42 Family history of malignant neoplasm of prostate
CPT/HCPCS: 80053; 80061; 83721; 84153; 85027; 83036; 84443